=== PATIENT | female | born 1965 | race Caucasian/White ===

== ENCOUNTER 2017-01-09 11:20 | Day surgery (SDC) | payer BC ==
[~2017-01-09] VITALS: Ht 163.8 cm; Wt 98.0 kg
[~2017-01-09 11:20] MED LIST: CEFAZOLIN 1 GRAM INJECTION IV ONE; FOLI1TAB15 PO; LIDOCAINE 1% (10mg/ml) 2ml SDV INJ ONE; LR 1,000 ML IV SCH; OXYC-541 PO
--- OUTSIDE RECORDS SUMMARY | 2017-01-09 11:24 | XMS REPORT | Continuity of Care Document ---
Author Author [facility] Organization [facility] Address Unknown Phone Unavailable Care Team Providers Care Technical Illustrations Map Inker Name Role Phone Ajith Mcintosh Primary Care Physician [phone] Source Comments Some departments are not documenting in the electronic medical record. If you do not see the information that you expected, contact Release of Information in the Health Information Management department at [phone] for further assistance in locating additional records.[facility] Active Allergies and Adverse Reactions No Known Allergies Current Medications Prescription Sig. Disp. Refills Start End Date Status Date OXYCODONE HCL (OXYCODONE Take 2 Tabs by mouth Active PO) every 4 hours. metoprolol XL (TOPROL XL) Take 25 mg by mouth Active 25 mg extended release daily. tablet gabapentin (NEURONTIN) Take 1 Cap by mouth every 60 Cap 0 07/22/20 Active 300 mg capsule 12 hours. Start with 1 at 16 bedtime for 1 week and then increase to 2 a day for 1 week, then increase to 3 a day Active Problems Not on file Most Recent Encounters Date Type Specialty Providers Description 01/02/2017 Telephone Oncology Miles Mejia MD Reports - No call made. Recieved faxed office note dated 12/19/[address] Wells's office. copy kept for review and other sent to be scanned into chart. 12/25/2016 Telephone Oncology Miles Mejia MD Reports - No call made, faxed office note dated 12/16/[address] Hackett's office, sent to be scanned into chart and copy kept to be reviewed by Dr Mejia. 10/25/2016 Telephone Oncology Miles Mejia MD Reports - Office notes for visits dated 09/30,10/08/[address] Hackett's office. Copy kept for Dr Jackie adler and original sent t obe scanned into chart. Social History Tobacco Use Types Packs/Day Years Used Date Former Smoker Cigarettes 1 13 Smokeless Tobacco: Never Used Alcohol Use Drinks/Week oz/Week Comments Yes Last Filed Vital Signs Vital Sign Reading Time Taken Blood Pressure 132/68 07/22/2016 1:06 PM CDT Pulse 84 07/22/2016 1:06 PM CDT Temperature 36.6 C (97.9 F) 07/22/2016 1:06 PM CDT Respiratory Rate 18 07/22/2016 1:06 PM CDT Height 1.676 m (5' 6") 07/22/2016 1:06 PM CDT Weight 101.1 kg (222 lb 14.2 oz) 07/22/2016 1:06 PM CDT Body Mass Index 35.99 07/22/2016 1:06 PM CDT Oxygen Saturation 100% 07/22/2016 1:06 PM CDT Plan of Care Health Maintenance Due Date Last Done Comments Hepatitis C Screening 1965 Physical (Comprehensive) 01/03/1971 Exam Pertussis Vaccine 01/03/1975 Tetanus Vaccine 01/03/1981 Cervical Cancer Screening 01/03/1985 Breast Cancer Screening 2004 Colorectal Cancer 01/03/2014 Screening Influenza Vaccine 06/27/2016 Results from Last 3 Months Not on file
[2017-01-09 12:22] LABS: HCT - HEMATOCRIT 33.1 % (36-46); HGB - HEMOGLOBIN 9.8 GM/DL (12-16); MEAN CORPUSCULAR HGB 33.3 UUG (26-34); MEAN CORPUSCULAR HGB CONC(MCHC 29.6 GM/DL (31-37); MEAN CORPUSCULAR VOLUME 112.6 UM3 (80-100); MEAN PLATELET VOLUME 9.7 UM3 (9.4-12.4); RED BLOOD COUNT 2.94 M/MM3 (4.00-5.20)
[2017-01-09 12:29] LABS: ANION GAP 8 MEQ/L (5-15); BUN/CREATININE RATIO 16 RATIO (6-26); CALCIUM 8.7 MG/DL (8.4-10.2); CHLORIDE 108 MEQ/L (98-107); CO2 - CARBON DIOXIDE 27 MEQ/L (22-30); CREATININE 1.1 MG/DL (0.7-1.2); GLOMERULAR FILTRATION RATE 52; GLUCOSE 98 MG/DL (65-110); POTASSIUM 4.5 MEQ/L (3.6-5); SODIUM 143 MEQ/L (134-144)
[2017-01-09 12:30] LABS: WBC - WHITE BLOOD COUNT 1.2 T/MM3 (4.5-11.0)
[2017-01-09] MEDS ORDERED: SALINE FLUSH 10ml SYRINGE ONE (12:38)
[2017-01-09] MEDS ORDERED: IOHEXOL 300 MG/ML 50ml INJECTION ONE ×2 (12:38→13:50)
--- NOTE | 2017-01-09 12:41 | ANESPREOP ---
Anesthesia Record Date and Time DATE: 01/09/17 TIME: 12:38 Proposed Surgical Procedure T&O #1 Allergies: Coded Allergies: metoclopramide (Verified Adverse Reaction, Unknown, RESTLESSNESS, 01/08/17) promethazine (Verified Adverse Reaction, Unknown, RESTLESSNESS, 01/08/17) Ht/Wt/BMI Height: ' " Weight: kg BMI: kg/m2 Medications Inpatient Medications Current Medications Medications (Trade) Dose Ordered Sig/Samy Start Time Stop Time Status Last Admin Dose Admin Lactated Ringer's (Lactated Ringers) 1,000 ml @ 30 mls/hr Q24H 01/09/17 07:00 Folic Acid (Folic Acid) 1 Mg Tablet, 1 TAB PO DAILY, (Reported) Oxycodone HCl/Acetaminophen (Oxycodone-Acetaminophen 5-325) 5-325 Tablet, 1-2 TAB PO Q4-6H PRN for PAIN, (Reported) Currently on Beta Alva: No Medical/Surgical History Anesthesia PMH: Reports: Cancer (CERVICAL), Denies: *Diabetes, Anesthesia Reactions (NO AIRWAY ISSUES), Arthritis, Blood Transfusion Reac, Clotting Problems, Glaucoma, Malignant Hyperthermia, Renal Disease (HAS STENT), Thyroid Disease Smoking Status: Former smoker (quit 26 yrs ago ) Has pt. smoked today?: No Substance Use Type: does not use Alcohol Intake: none HX of Last Menstrual Period: 2013 Past Surgical History Orthopedic Surgeries: Abdominal Surgeries: Genitourinary Surgeries: Yes - STENTS TO KIDNEY Cardiac Surgeries: Endocrine Surgeries: Reproductive Surgeries: Yes - SLEVE PLACEMENT,MASS REMOVAL Neurological Surgeries: Ear Surgeries: Nose Surgeries: Throat Surgeries: Other Surgeries: Yes - COLONOSCOPY Anesthesia Adverse Reactions: FOUND none Family Hx of Anesthesia Advers: none Hx of Motion Sickness: No Pertinent Findings Laboratory Tests 01/09/17 12:15 EKG Rhythm: Sinus Rhythm Physical Exam Respiratory: Bilat breath sounds equal, Lungs clear Cardiovascular: FOUND Regular rate, rhythm, FOUND No murmur Airway Assessment Mallampati Score: I TMD: 3 Fingerbreadths Neck Extension: Good Overall Assessment: No Airway Concerns ASA: 2 Plan Anesthesia Plan: TIVA, LMA Discussion Discussed risks/options/alternatives of anesthesia and questions answered. Patient consents. Nursing pain assessment noted. Attestation Statement Prior to the delivery of any anesthetic medication, I examined the patient, developed the plan, obtained the patient's consent and discussed the risk and benefits of the procedure with the patient/guardian. STACIE SCHILLING CRNA Jan 09, 2017 12:41
[2017-01-09 12:52] LABS: ANISOCYTOSIS 2+; BAND NEUTROPHILS # 0.1 T/MM3; EOSINOPHILS # (MANUAL) 0.1 T/MM3 (0-0.5); LYMPHOCYTES # (MANUAL) 0.2 T/MM3 (1-4.8); MONOCYTES # (MANUAL) 0.1 T/MM3 (0-0.8); NEUTROPHILS #(MANUAL)-ABSOLUTE 0.6 T/MM3 (1.8-7.7); OVALOCYTES 1+; POIKILOCYTOSIS 2+; TEAR DROP CELLS 1+; TOTAL CELLS COUNTED 50 %
[2017-01-09 13:03] VITALS: Ht 163.8 cm; Wt 98.0 kg
[2017-01-09 13:04] VITALS: BP 118/76; PULSE 79; RESP 14; TEMP 98.6; O2SAT 97
[2017-01-09] MEDS ORDERED: GABA-338 PO (13:09)
[2017-01-09] MEDS ORDERED: ONDA-55 PO (13:10)
[2017-01-09] MEDS ORDERED: PROC10TA PO (13:12)
[2017-01-09] MEDS ORDERED: KETAMINE 500mg/10ml INJECTION ONE (13:33)
[2017-01-09] MEDS ORDERED: FENTANYL 100mcg/2ml INJECTION ONE (13:33)
[2017-01-09] MEDS ORDERED: MIDAZOLAM 2mg/2ml INJECTION ONE (13:33)
[2017-01-09] MEDS ORDERED: PROPOFOL 200mg 20 ML IV ONE (13:34)
[2017-01-09] MEDS ORDERED: LIDOCAINE 2% (20mg/ml) 5ml PF SDV ONE (13:34)
--- NOTE | 2017-01-09 13:40 | NUR ---
SURGERY CANCELLED PROCEDURE CANCELLED DUE TO CRITICAL LOW WHITE BLOOD CELL COUNT OF 1.2
[2017-01-09 13:43] VITALS: BP 118/64; PULSE 71; RESP 12; TEMP 98.6; O2SAT 99
[2017-01-09 14:20] VITALS: BP 127/71; PULSE 82; RESP 20; O2SAT 96
--- NOTE | 2017-01-09 15:07 | GSDISC ---
General Date Date DATE: 01/09/17 TIME: 14:55 Attending Physician Abbey Stinson MD Admitting Physician Abbey Stinson MD Consulting Physician Discharge Diagnosis: (1) Cervical carcinoma Status: Chronic Laboratory Laboratory Laboratory Tests Test 01/09/17 12:15 White Blood Count 1.2T/MM3 Red Blood Count 2.94M/MM3 Hemoglobin 9.8GM/DL Hematocrit 33.1% Mean Corpuscular Volume 112.6UM3 Mean Corpuscular Hemoglobin 33.3UUG Mean Corpuscular Hemoglobin Concent 29.6GM/DL RDW Standard Deviation 74.8FL Platelet Count 173T/MM3 Mean Platelet Volume 9.7UM3 Immature Granulocyte % (Auto) % Neutrophils (%) (Auto) % Lymphocytes (%) (Auto) % Monocytes (%) (Auto) % Eosinophils (%) (Auto) % Basophils (%) (Auto) % Absolute Immature Granulocyte (auto T/MM3 Absolute Neutrophils (auto) T/MM3 Absolute Lymphocytes (auto) T/MM3 Absolute Monocytes (auto) T/MM3 Absolute Eosinophils (auto) T/MM3 Absolute Basophils (auto) T/MM3 Neutrophils % (Manual) 54.0% Band Neutrophils % 10.0% Lymphocytes % (Manual) 18.0% Monocytes % (Manual) 10.0% Eosinophils % (Manual) 8.0% Absolute Neutrophils (Manual) 0.6T/MM3 Band Neutrophils # 0.1T/MM3 Lymphocytes # (Manual) 0.2T/MM3 Monocytes # (Manual) 0.1T/MM3 Eosinophils # (Manual) 0.1T/MM3 Poikilocytosis 2+ Anisocytosis 2+ Macrocytosis 1+ Tear Drop Cells 1+ Ovalocytes 1+ Red Cell Morphology Comment Abnormal Turbidity < 20 Sodium Level 143MEQ/L Potassium Level 4.5MEQ/L Chloride Level 108MEQ/L Carbon Dioxide Level 27MEQ/L Anion Gap 8MEQ/L Blood Urea Nitrogen 18.0MG/DL Creatinine 1.1MG/DL Glomerular Filtration Rate Calc 52 BUN/Creatinine Ratio 16RATIO Glucose Level 98MG/DL Calculated Osmolality 277MOSM/KG Calcium Level 8.7MG/DL Icterus Index < 2 Chemistry Specimen Hemolysis < 15 Hospital Course Patient was prepped in standard fashion in preparation for tandem and ovoids was begun. Procedure had to be aborted, secondary to neutropenia, secondary to chemotherapy. The counts were WLN last week but fell unexpectedly. Dr. Hackett was contacted. Patient is on Levaquin. Will await evaluation of labs next week prior to treatment. Home Meds Reported Medications Prochlorperazine Maleate (Prochlorperazine Maleate) 10 Mg Tablet, 1 TAB PO Q6H for NAUSEA &/OR VOMITING, #60 TAB 3 Refills 01/09/17 Ondansetron HCl (Ondansetron HCl) 4 Mg Tablet, 4 MG PO Q4-6H for NAUSEA &/OR VOMITING, TAB 01/09/17 Gabapentin (Gabapentin) 300 Mg Capsule, 1-2 CAP PO TID, CAP 01/09/17 Folic Acid (Folic Acid) 1 Mg Tablet, 1 TAB PO DAILY, #30 01/08/17 Oxycodone HCl/Acetaminophen (Oxycodone-Acetaminophen 5-325) 5-325 Tablet, 1-2 TAB PO Q4-6H Y for PAIN, #120 01/08/17 Discharge Disposition Discharged in good condition. ABBEY STINSON MD Jan 09, 2017 15:06
== END 2017-01-09 14:25 | disposition home or self-care (01) ==
LOC: SCU 11:20
PROVIDERS: ATTEND Radiology Radiation Oncology
DX: C79.82 Secondary malignant neoplasm of genital organs (principal); D70.1 Agranulocytosis secondary to cancer chemotherapy; Z53.09 Procedure and treatment not carried out because of other contraindication; Z15.09 Genetic susceptibility to other malignant neoplasm; E66.9 Obesity, unspecified; Z68.36 Body mass index [BMI] 36.0-36.9, adult; E03.9 Hypothyroidism, unspecified; F32.9 Major depressive disorder, single episode, unspecified; Z79.899 Other long term (current) drug therapy; Z87.891 Personal history of nicotine dependence
CPT/HCPCS: 36415; 57155; 80048; 85025; J1642; J2250; J2704; J3010; J7120; Q9967

== ENCOUNTER 2017-01-16 09:23 | Day surgery (SDC) | payer BC ==
[2017-01-16] VITALS (7 sets, daily range): BP systolic 103–115; BP diastolic 63–76; PULSE 63–89; RESP 12–18; TEMP 97.6–98.5; O2SAT 91–98; Ht 163.8 cm; Wt 97.7 kg
[~2017-01-16] VITALS: Ht 163.8 cm; Wt 97.7 kg
[~2017-01-16 09:23] MED LIST changes: +GABA-338 PO; +IOHEXOL 300 MG/ML 50ml INJECTION ONE; +ONDA-55 PO; +PROC10TA PO; +SALINE FLUSH 10ml SYRINGE ONE
--- OUTSIDE RECORDS SUMMARY | 2017-01-16 09:26 | XMS REPORT | Continuity of Care Document ---
Author Author [facility] Organization [facility] Address Unknown Phone Unavailable Care Team Providers Care Cardiac Technologist Name Role Phone Ajith Mcintosh Primary Care Physician [phone] Source Comments Some departments are not documenting in the electronic medical record. If you do not see the information that you expected, contact Release of Information in the Health Information Management department at [phone] for further assistance in locating additional records.[facility] Active Allergies and Adverse Reactions No Known [...] Recent Encounters Date Type Specialty Providers Description 01/15/2017 Telephone Oncology Miles Mejia MD Reports - no call made. Records reicieved from office visit dated 12/16/[address] Hackett. Sent to be scanned into chart after reviewed by Dr. Mejia 01/02/2017 Telephone Oncology Miles Mejia MD Reports [...]
--- OUTSIDE RECORDS SUMMARY | 2017-01-16 09:26 | XMS REPORT | Continuity of Care Document ---
Author Author [facility] Organization [facility] Address Unknown Phone Unavailable Support Name Relationship Address Phone CHEKO AMIN MD Caregiver [address] [place] [address] Unavailable NAPOLEON PILLAI MD Caregiver [address] [place] [address] Unavailable ALYX LYNNE Next Of Kin [address] [place] [address] Insurance Providers Guarantor Lizz Lynne Address [address] [place] [address] Email [email or web address] [facility]ayer [facility] Policy Number [id number] Subscriber's Name Alyx Lynne Relationship 01 Spouse Group Number [id number] Advance Directives Directive Response Recorded Date/Time Dr Ordered Resuscitation Status Full Code 01/08/17 3:14pm Resuscitation Documents on File No 01/09/17 1:21pm DPOA for Healthcare Only No 01/09/17 1:21pm Living Will No 01/09/17 1:21pm Problems No problem information available. Medications Current Home Medications Medication Dose Units Route Directions Days Qty Instructions Start Date Folic Acid 1 Mg Tablet 1 Tab Oral Daily 30 01/08/17 Gabapentin 300 Mg Capsule 1-2 Cap Oral Three Times A Day 01/09/17 Ondansetron Hcl 4 Mg Tablet 4 Mg Oral Every 4-6 Hours for Nausea &/Or Vomiting 01/09/17 Oxycodone Hcl/Acetaminophen (Oxycodone-Acetaminophen 5-325) 5-325 Tablet 1-2 Tab Oral Every 4-6 Hours as needed for Pain 120 01/08/17 Prochlorperazine Maleate 10 Mg Tablet 1 Tab Oral Every 6 Hours for Nausea & /Or Vomiting 60 Tablet 01/09/17 Social History Social History Problem Response Recorded Date/Time Onset Date Status Chewing Tobacco Status No 01/09/2017 1:12pm Not Applicable Not Applicable Hx Substance Use No 01/09/2017 1:12pm Not Applicable Not Applicable Hx Alcohol Use Y OCC 01/09/2017 1:12pm Not Applicable Not Applicable Has the pt used tobacco in the last 12 months No 01/09/2017 1:12pm Not Applicable Not Applicable Query Response Start Date Stop Date Smoking Status Former smoker Hospital Discharge Instructions No hospital discharge instructions. Plan of Care Discharge Date 01/09/17 2:25pm Prescriptions See Medication Section Functional Status Query Response Date Recorded Ability to complete ADL's impeded by No change January 09, 2017 1:21pm Allergies, Adverse Reactions, Alerts Allergen Type Severity Reaction Status Last Updated Promethazine Adverse Reaction Unknown RESTLESSNESS Active 01/09/17 Metoclopramide Adverse Reaction Unknown RESTLESSNESS Active 01/09/17 Immunizations Query Response on File Recorded Date/Time Hx Influenza Vaccination No 01/09/17 1:12pm Hx Pneumococcal Vaccination No 01/09/17 1:12pm Hx Influenza Vaccination No 01/09/17 1:12pm Vital Signs Acute Vital Signs Vital Response Date/Time Temperature (Fahrenheit) 98.6 deg F (96.8 - 99.1) 01/09/2017 1:43pm Temperature (Calculated Celsius) 37.38941 degrees C (36.0 - 37.3) 01/09/2017 1:43pm Temperature Source Oral 01/09/2017 1:43pm Pulse Rate (adult) 82 bpm (60 - 100) 01/09/2017 2:20pm Respiratory Rate 20 breaths/min (10 - 20) 01/09/2017 2:20pm O2 Sat by Pulse Oximetry 96 % (90 - 100) 01/09/2017 2:20pm Oxygen Delivery Method Room Air 01/09/2017 2:20pm Blood Pressure 127/71 mm Hg 01/09/2017 2:20pm Blood Pressure Source Automatic Cuff 01/09/2017 2:20pm Height (Feet) 5 feet 01/09/2017 1:03pm Height (Inches) 4.50 inches 01/09/2017 1:03pm Weight (Kilograms) 98.000 kg 01/09/2017 1:03pm Body Mass Index (BMI) 36.5 01/09/2017 1:03pm Results Laboratory Results Test Name Result Units Flags Reference Collection Date/Time Result Date/ Time Comments White Blood Count 1.2 T/MM3 *L 4.5-11.0 01/09/2017 12:15pm 01/09/2017 12: 30pm Red Blood Count 2.94 M/MM3 L 4.00-5.20 01/09/2017 12:15pm 01/09/2017 12: 28pm Hemoglobin 9.8 GM/DL L 12-16 01/09/2017 12:15pm 01/09/2017 12:28pm Hematocrit 33.1 % L 36-46 01/09/2017 12:15pm 01/09/2017 12:28pm Mean Corpuscular Volume 112.6 UM3 H 80-100 01/09/2017 12:15pm 2016 12:28pm Mean Corpuscular Hemoglobin 33.3 UUG 26-34 01/09/2017 12:15pm 2016 12:28pm Mean Corpuscular Hemoglobin Concent 29.6 GM/DL L 31-37 01/09/2017 12: 15pm 01/09/2017 12:28pm RDW Standard Deviation 74.8 FL H 36.9-50.2 01/09/2017 12:15pm 2016 12:28pm Platelet Count 173 T/MM3 130-400 01/09/2017 12:15pm 01/09/2017 12:28pm Mean Platelet Volume 9.7 UM3 9.4-12.4 01/09/2017 12:15pm 01/09/2017 12: 28pm Neutrophils % (Manual) 54.0 % 33-66 01/09/2017 12:15pm 01/09/2017 12: 52pm Band Neutrophils % 10.0 % H 0-6 01/09/2017 12:15pm 01/09/2017 12:52pm Lymphocytes % (Manual) 18.0 % L 23-45 01/09/2017 12:15pm 01/09/2017 12: 52pm Monocytes % (Manual) 10.0 % H 0-9.0 01/09/2017 12:15pm 01/09/2017 12: 52pm Eosinophils % (Manual) 8.0 % H 0-4 01/09/2017 12:15pm 01/09/2017 12: 52pm Band Neutrophils # 0.1 T/MM3 01/09/2017 12:15pm 01/09/2017 12:52pm Absolute Neutrophils (Manual) 0.6 T/MM3 L 1.8-7.7 01/09/2017 12:15pm 12:52pm Lymphocytes # (Manual) 0.2 T/MM3 L 1-4.8 01/09/2017 12:15pm 01/09/2017 12:52pm Monocytes # (Manual) 0.1 T/MM3 0-0.8 01/09/2017 12:15pm 01/09/2017 12: 52pm Eosinophils # (Manual) 0.1 T/MM3 0-0.5 01/09/2017 12:15pm 01/09/2017 12 :52pm Red Cell Morphology Comment ABNORMAL 01/09/2017 12:15pm 01/09/2017 12:52pm Anisocytosis 2+ 01/09/2017 12:15pm 01/09/2017 12:52pm Poikilocytosis 2+ 01/09/2017 12:15pm 01/09/2017 12:52pm Macrocytosis 1+ 01/09/2017 12:15pm 01/09/2017 12:52pm Ovalocytes 1+ 01/09/2017 12:15pm 01/09/2017 12:52pm Tear Drop Cells 1+ 01/09/2017 12:15pm 01/09/2017 12:52pm Icterus Index < 2 0-7 01/09/2017 12:15pm 01/09/2017 12:29pm Chemistry Specimen Hemolysis < 15 0-25 01/09/2017 12:15pm 01/09/2017 12:29pm 0-25: Specimen Exhibited No Hemolysis. Turbidity < 20 0-20 01/09/2017 12:15pm 01/09/2017 12:29pm Sodium Level 143 MEQ/L 134-144 01/09/2017 12:15pm 01/09/2017 12:29pm Potassium Level 4.5 MEQ/L 3.6-5 01/09/2017 12:15pm 01/09/2017 12:29pm Chloride Level 108 MEQ/L H 98-107 01/09/2017 12:15pm 01/09/2017 12:29pm Carbon Dioxide Level 27 MEQ/L 22-30 01/09/2017 12:15pm 01/09/2017 12: 29pm Anion Gap 8 MEQ/L 5-15 01/09/2017 12:15pm 01/09/2017 12:29pm Blood Urea Nitrogen 18.0 MG/DL H 7-17 01/09/2017 12:15pm 01/09/2017 12: 29pm Creatinine 1.1 MG/DL 0.7-1.2 01/09/2017 12:15pm 01/09/2017 12:29pm BUN/Creatinine Ratio 16 RATIO 6-26 01/09/2017 12:15pm 01/09/2017 12: 29pm Glomerular Filtration Rate Calc 52 01/09/2017 12:15pm 01/09/2017 12 :29pm Glucose Level 98 MG/DL 65-110 01/09/2017 12:15pm 01/09/2017 12:29pm Calculated Osmolality 277 MOSM/KG 261-280 01/09/2017 12:15pm 2016 12:29pm Calcium Level 8.7 MG/DL 8.4-10.2 01/09/2017 12:15pm 01/09/2017 12:29pm Procedures Procedure Status Date Provider(s) Brachytherapy Completed 01/09/17 NAPOLEON PILLAI MD Encounters Encounter Location Arrival/Admit Date Discharge/Depart Date Attending Provider Departed Surgical Day Care [facility] 01/09/17 11:20am 01/09/17 2 :25pm NAPOLEON PILLAI MD
[2017-01-16 09:58] LABS: HCT - HEMATOCRIT 34.2 % (36-46); HGB - HEMOGLOBIN 10.6 GM/DL (12-16); MEAN CORPUSCULAR HGB 34.2 UUG (26-34); MEAN CORPUSCULAR VOLUME 110.3 UM3 (80-100); MEAN PLATELET VOLUME 10.6 UM3 (9.4-12.4); WBC - WHITE BLOOD COUNT 9.8 T/MM3 (4.5-11.0)
--- NOTE | 2017-01-16 10:00 | ANESPREOP ---
Anesthesia Record Date and Time DATE: 01/16/17 TIME: 09:58 Pre-Op Diagnosis cervical cancer Proposed Surgical Procedure TANDEM AND OVOID INSERTION 1 NPO since: mn Allergies: Coded Allergies: metoclopramide (Verified Adverse Reaction, Unknown, RESTLESSNESS, 01/09/17) promethazine (Verified Adverse Reaction, Unknown, RESTLESSNESS, 01/09/17) Ht/Wt/BMI Height: 5 ' 4.50 " Weight: 97.700 kg BMI: 36.4 kg/m2 Vital Signs Date Time Temp Pulse Resp B/P Pulse Ox O2 Delivery O2 Flow Rate FiO2 01/16/17 09:39 98.5 80 15 115/76 98 Room Air Medications Inpatient Medications Current Medications Medications (Trade) Dose Ordered Sig/Samy Start Time Stop Time Status Last Admin Dose Admin Lactated Ringer's (Lactated Ringers) 1,000 ml @ 30 mls/hr Q24H 01/16/17 07:00 Folic Acid (Folic Acid) 1 Mg Tablet, 1 TAB PO DAILY, (Reported) Gabapentin (Gabapentin) 300 Mg Capsule, 1-2 CAP PO TID, (Reported) Ondansetron HCl (Ondansetron HCl) 4 Mg Tablet, 8 MG PO Q8H, (Reported) Oxycodone HCl/Acetaminophen (Oxycodone-Acetaminophen 5-325) 5-325 Tablet, 1-2 TAB PO Q4-6H PRN for PAIN, (Reported) Prochlorperazine Maleate (Prochlorperazine Maleate) 10 Mg Tablet, 1 TAB PO Q6H, (Reported) Currently on Beta Alva: No Medical/Surgical History Anesthesia PMH: Reports: Arthritis (PER H&P), Cancer (CERVICAL), Obesity, Renal Disease (ureteral obstruction, stent placed), Thyroid Disease ( HYPOTHYROIDISM PER H&P) Smoking Status: Former smoker (quit 26 years ago) # of Packs per Day: 1 # of Years: 13 Use Chewing Tobacco?: No Second Hand Exposure: No Substance Use Type: does not use Alcohol Intake: none HX of Last Menstrual Period: LMP 2013 Past Surgical History Orthopedic Surgeries: Abdominal Surgeries: Genitourinary Surgeries: Yes - STENTS TO L. KIDNEY Cardiac Surgeries: Endocrine Surgeries: Reproductive Surgeries: Yes - SLEEVE PLACEMENT,MASS REMOVAL,SALPINGO OOPHORECTOMY Neurological Surgeries: Ear Surgeries: Nose Surgeries: Throat Surgeries: Other Surgeries: Yes - COLONOSCOPY & EGD Anesthesia Adverse Reactions: FOUND none Hx of Motion Sickness: No Pertinent Findings EKG Rhythm: Sinus Rhythm Physical Exam Respiratory: Bilat breath sounds equal, Lungs clear Cardiovascular: FOUND Regular rate, rhythm Airway Assessment Mallampati Score: II TMD: 3 Fingerbreadths Neck Extension: Good Overall Assessment: No Airway Concerns ASA: 2 Plan Anesthesia Plan: TIVA, LMA, GETA Discussion Discussed risks/options/alternatives of anesthesia and questions answered. Patient consents. Nursing pain assessment noted. Attestation Statement Prior to the delivery of any anesthetic medication, I examined the patient, developed the plan, obtained the patient's consent and discussed the risk and benefits of the procedure with the patient/guardian. STACIE ADAME CRNA Jan 16, 2017 10:00
[2017-01-16] MEDS ORDERED: PROPOFOL 500mg 50 ML IV ONE (10:07)
[2017-01-16] MEDS ORDERED: FENTANYL 100mcg/2ml INJECTION ONE (10:07)
[2017-01-16 10:13] LABS: ANION GAP 9 MEQ/L (5-15); BUN/CREATININE RATIO 16 RATIO (6-26); CHLORIDE 106 MEQ/L (98-107); CO2 - CARBON DIOXIDE 27 MEQ/L (22-30); GLOMERULAR FILTRATION RATE 58; GLUCOSE 106 MG/DL (65-110); POTASSIUM 4.2 MEQ/L (3.6-5); SODIUM 142 MEQ/L (134-144)
[2017-01-16 10:16] LABS: ANISOCYTOSIS 2+; BAND NEUTROPHILS # 1.8 T/MM3; BASOPHILS # (MANUAL) 0.1 T/MM3 (0-0.2); LYMPHOCYTES # (MANUAL) 0.4 T/MM3 (1-4.8); METAMYELOCYTES # 0.7 T/MM3; MONOCYTES # (MANUAL) 1.3 T/MM3 (0-0.8); MYELOCYTES # 0.3 T/MM3; NEUTROPHILS #(MANUAL)-ABSOLUTE 5.3 T/MM3 (1.8-7.7); NUCLEATED RED BLOOD CELLS 4; POIKILOCYTOSIS 2+; TOTAL CELLS COUNTED 100 %
[2017-01-16 10:17] LABS: OVALOCYTES 1+; TEAR DROP CELLS 1+
[2017-01-16] MEDS ORDERED: DEXAMETHASONE 4mg/ml - 1ml INJECTION ONE (10:57)
[2017-01-16] MEDS ORDERED: IOHEXOL 300 MG/ML 50ml INJECTION ONE (11:15)
[2017-01-16] MEDS: HYDROMORPHONE 2mg/ml INJECTION IV PRN ×3 (11:32→11:59)
--- NOTE | 2017-01-16 12:01 | ANESPO ---
Post-Op Note Date 01/16/17 Time: 12:00 Status Pt Participated in Evaluation: Pt participated in person Vital Signs Date Time Temp Pulse Resp B/P Pulse Ox O2 Delivery O2 Flow Rate FiO2 01/16/17 11:44 12 01/16/17 11:37 78 110/68 93 Room Air 01/16/17 11:22 97.6 6.00 Respiratory Function: Airway patent, Regular respirations Cardiovascular Function: Regular pulse Mental Status: Alert/oriented Pain Level Intensity: 6 (pt states more pressure than pain) Hydration: IV infusing Complications during Recovery None apparent Follow-Up Instructions Instructions Per Surgeon ZITA KELLY SNACK BAR COOK STUDENT Jan 16, 2017 12:01
--- NOTE | 2017-01-16 12:15 | NUR ---
TRANSFER PATIENT ALERT AND ORIENTED WITHOUT C/O. TRANSFERRED TO IMAGING DEPARTMENT VIA CART FOR CT. MEHTA PATENT, EMPTIED 175 ML IN PACU. PAC FLUSHED WITH 10 ML NS, REMAINS ACCESSED. RN TO REMAIN WITH PATIENT DURING CT.
--- NOTE | 2017-01-16 12:31 | NUR ---
TRANSFER PATIENT REMAINS ALERT AND ORIENTED. NO C/O VOICED. TRANSFER OF CARE TO [facility]. REPORT GIVEN TO FRANCHESKA, RADIATION THERAPIST. PATIENT TRANSFERRED TO [facility] VIA CART ACCOMPANIED BY FRANCHESKA AND [facility] STAFF MEMBER. PATIENT SPOUSE PRESENT AT TIME OF TRANSFER.
--- NOTE | 2017-01-16 12:55 | DI ---
Indication: ITS.REASON: Verify applicator placement and R/O postop complication PROCEDURE: CT PELVIS W/O CONTRAST: Encounter: Initial Comparison: None Technique: Axial noncontrast CT imaging through the pelvis with coronal and sagittal two-dimensional reformats. Automated Exposure Control and Iterative Reconstruction dose reducing techniques were utilized. Findings: Exam is performed for radiation therapy treatment planning purposes. There is a tandem and ovoid device in appropriate position. No evidence of uterine perforation. Velarde catheter within a contrast-filled bladder. No evidence of extravasation. Rectal contrast was also administered. No evidence of colonic perforation. Visualized small and large bowel loops within the pelvis are grossly normal. Bone windows are unremarkable. Left-sided ureteral stent in place. Surgical clips along the left pelvic sidewall. Impression: Radiation therapy treatment device in place without evidence of immediate complication. .
--- NOTE | 2017-01-16 18:25 | GSDISC ---
General Date Date DATE: 01/16/17 TIME: 18:20 Attending Physician Abbey Stinson MD Admitting Physician Abbey Stinson MD Consulting Physician Discharge Diagnosis: (1) Cervical carcinoma Status: Chronic Procedures Tandem and ovoid insertion with exam under anesthesia. Laboratory Laboratory Laboratory Tests Test 01/16/17 09:52 White Blood Count 9.8T/MM3 Red Blood Count 3.10M/MM3 Hemoglobin 10.6GM/DL Hematocrit 34.2% Mean Corpuscular Volume 110.3UM3 Mean Corpuscular Hemoglobin 34.2UUG Mean Corpuscular Hemoglobin Concent 31.0GM/DL RDW Standard Deviation 72.1FL Platelet Count 195T/MM3 Mean Platelet Volume 10.6UM3 Immature Granulocyte % (Auto) % Neutrophils (%) (Auto) % Lymphocytes (%) (Auto) % Monocytes (%) (Auto) % Eosinophils (%) (Auto) % Basophils (%) (Auto) % Absolute Immature Granulocyte (auto T/MM3 Absolute Neutrophils (auto) T/MM3 Absolute Lymphocytes (auto) T/MM3 Absolute Monocytes (auto) T/MM3 Absolute Eosinophils (auto) T/MM3 Absolute Basophils (auto) T/MM3 Neutrophils % (Manual) 54.0% Band Neutrophils % 18.0% Lymphocytes % (Manual) 4.0% Monocytes % (Manual) 13.0% Basophils % (Manual) 1.0% Metamyelocytes % 7.0% Myelocytes % 3.0% Absolute Neutrophils (Manual) 5.3T/MM3 Band Neutrophils # 1.8T/MM3 Lymphocytes # (Manual) 0.4T/MM3 Monocytes # (Manual) 1.3T/MM3 Basophils # (Manual) 0.1T/MM3 Metamyelocytes # 0.7T/MM3 Myelocytes # 0.3T/MM3 Nucleated Red Blood Cells 4 Poikilocytosis 2+ Anisocytosis 2+ Macrocytosis 1+ Tear Drop Cells 1+ Ovalocytes 1+ Red Cell Morphology Comment Abnormal Turbidity < 20 Sodium Level 142MEQ/L Potassium Level 4.2MEQ/L Chloride Level 106MEQ/L Carbon Dioxide Level 27MEQ/L Anion Gap 9MEQ/L Blood Urea Nitrogen 16.0MG/DL Creatinine 1.0MG/DL Glomerular Filtration Rate Calc 58 BUN/Creatinine Ratio 16RATIO Glucose Level 106MG/DL Calculated Osmolality 274MOSM/KG Calcium Level 9.0MG/DL Icterus Index < 2 Chemistry Specimen Hemolysis < 15 Hospital Course Patients labs were reviewed and are adequate to proceed. Patient prepped and draped in standard fashion. Velarde placed with Hypaque in balloon. Exam under anesthesia showed no lesions. There is redundancy of tissue with both cysto and rectocele. 15 degree tandem was placed without difficulty into 8cm cervical sleeve. Small ovoids placed without complication. Separate bladder and rectal packing placed. Rectal tube placed for CT contrast to be used in treatment planning. Patient was in good condition on dismissal to recovery. Home Meds Reported Medications Prochlorperazine Maleate (Prochlorperazine Maleate) 10 Mg Tablet, 1 TAB PO Q6H for NAUSEA &/OR VOMITING, #60 TAB 3 Refills 01/09/17 Ondansetron HCl (Ondansetron HCl) 4 Mg Tablet, 8 MG PO Q8H, TAB 01/09/17 Gabapentin (Gabapentin) 300 Mg Capsule, 1-2 CAP PO TID, CAP 01/09/17 Folic Acid (Folic Acid) 1 Mg Tablet, 1 TAB PO DAILY, #30 01/08/17 Oxycodone HCl/Acetaminophen (Oxycodone-Acetaminophen 5-325) 5-325 Tablet, 1-2 TAB PO Q4-6H Y for PAIN, #120 01/08/17 Discharge Disposition Dismissed in good condition to recovery. ABBEY STINSON MD Jan 16, 2017 18:24
== END 2017-01-16 12:31 | disposition other institution (70) ==
LOC: SCU 09:23
PROVIDERS: ATTEND Radiology Radiation Oncology
DX: C79.82 Secondary malignant neoplasm of genital organs (principal); N81.6 Rectocele; Z15.09 Genetic susceptibility to other malignant neoplasm; F32.9 Major depressive disorder, single episode, unspecified; E03.9 Hypothyroidism, unspecified; E66.9 Obesity, unspecified; Z68.36 Body mass index [BMI] 36.0-36.9, adult; Z79.899 Other long term (current) drug therapy; Z87.891 Personal history of nicotine dependence
CPT/HCPCS: 57155; 72192; 80048; 85025; J0690; J1100; J1170; J2704; J3010; J7120; Q9967

== ENCOUNTER 2017-01-30 08:31 | Day surgery (SDC) | payer BC ==
[~2017-01-30] VITALS: Ht 165.1 cm; Wt 95.6 kg
[~2017-01-30 08:31] MED LIST changes: -SALINE FLUSH 10ml SYRINGE ONE
--- OUTSIDE RECORDS SUMMARY | 2017-01-30 08:34 | XMS REPORT | Continuity of Care Document ---
Author Author [facility] Organization [facility] Address Unknown Phone Unavailable Care Team Providers Care Sales Applications Engineer Name Role Phone Ajith Mcintosh Primary Care Physician [phone] Source Comments Some departments are not documenting in the electronic medical record. If you do not see the information that you expected, contact Release of Information in the Health Information Management department at [phone] for further assistance in locating additional records.[facility] Active Allergies and Adverse Reactions [...] Recent Encounters Date Type Specialty Providers Description 01/29/2017 Telephone Oncology Miles Mejia MD Reports - No call made. fax recieved of office visit dated 01/20/[address] Hackett, copy made for doctor to review and orginal sent to be scanned into chart. 01/15/2017 Telephone Oncology Miles Mejia MD Reports [...] kept to be reviewed by Dr Mejia. Social History Tobacco Use Types Packs/Day Years [...] 2004 Colorectal Cancer 01/03/2014 Screening Influenza Vaccine 06/27/2017 Results from Last 3 Months Not on file
--- OUTSIDE RECORDS SUMMARY | 2017-01-30 08:34 | XMS REPORT | Continuity of Care Document ---
Author Author [facility] Organization [facility] Address Unknown Phone Unavailable Support Name Relationship Address Phone CHEKO AMIN MD Caregiver [address] [place] [address] Unavailable NAPOLEON PILLAI MD Caregiver [address] [place] [address] Unavailable ALYX DURBIN Next Of Kin [address] [place] [address] Insurance Providers Guarantor Lizz Durbin Address [address] [place] [address] Email [email or web address] Payer [facility] Policy Number [id number] Subscriber's Name Alyx Durbin Relationship 01 Spouse Group Number [id number] Advance Directives Directive Response Recorded Date/Time Dr Ordered Resuscitation Status Full Code 01/15/17 2:14pm Resuscitation Documents on File No 01/16/17 10:17am DPOA for Healthcare Only No 01/16/17 10:17am Living Will No 01/16/17 10:17am Problems Active Problems Medical Problem Onset Date Status Cervical carcinoma Unknown Chronic Medications Current Home Medications Medication Dose Units Route Directions Days Qty Instructions Start Date Folic Acid 1 Mg Tablet 1 Tab Oral Daily 30 01/08/17 Gabapentin 300 Mg Capsule 1-2 Cap Oral Three Times A Day 01/09/17 Ondansetron Hcl 4 Mg Tablet 8 Mg Oral Every 8 Hours 01/09/17 Oxycodone Hcl/Acetaminophen (Oxycodone-Acetaminophen 5-325) 5-325 Tablet 1-2 Tab Oral Every 4-6 Hours as needed for Pain 120 01/08/17 Prochlorperazine Maleate 10 Mg Tablet 1 Tab Oral Every 6 Hours for Nausea & /Or Vomiting 60 Tablet 01/09/17 Social History Social History Problem Response Recorded Date/Time Onset Date Status Chewing Tobacco Status No 01/16/2017 10:19am Not Applicable Not Applicable Hx Substance Use No 01/16/2017 10:19am Not Applicable Not Applicable Hx Alcohol Use Y OCC 01/16/2017 10:19am Not Applicable Not Applicable Has the pt used tobacco in the last 12 months No 01/16/2017 10:19am Not Applicable Not Applicable Query Response Start Date Stop Date Smoking Status Former smoker Hospital Discharge Instructions No hospital discharge instructions. Plan of Care Discharge Date 01/16/17 12:31pm Prescriptions See Medication Section Functional Status Query Response Date Recorded Ability to complete ADL's impeded by No change January 16, 2017 10:17am Allergies, Adverse Reactions, Alerts Allergen Type Severity Reaction Status Last Updated Promethazine Adverse Reaction Unknown RESTLESSNESS Active 01/16/17 Metoclopramide Adverse Reaction Unknown RESTLESSNESS Active 01/16/17 Immunizations Query Response on File Recorded Date/Time Hx Influenza Vaccination No 01/16/17 10:19am Hx Pneumococcal Vaccination No 01/16/17 10:19am Hx Influenza Vaccination No 01/16/17 10:19am Vital Signs Acute Vital Signs Vital Response Date/Time Temperature (Fahrenheit) 97.6 deg F (96.8 - 99.1) 01/16/2017 12:06pm Temperature (Calculated Celsius) 36.93460 degrees C (36.0 - 37.3) 01/16/2017 12:06pm Temperature Source Temporal 01/16/2017 12:06pm Pulse Rate (adult) 64 bpm (60 - 100) 01/16/2017 12:10pm Respiratory Rate 14 breaths/min (10 - 20) 01/16/2017 12:10pm O2 Sat by Pulse Oximetry 92 % (90 - 100) 01/16/2017 12:10pm Oxygen Delivery Method Room Air 01/16/2017 12:10pm Oxygen Flow Rate 6.00 L/min 01/16/2017 11:22am Blood Pressure 111/71 mm Hg 01/16/2017 12:10pm Blood Pressure Source Automatic Cuff 01/16/2017 12:10pm Height (Feet) 5 feet 01/16/2017 9:38am Height (Inches) 4.50 inches 01/16/2017 9:38am Weight (Kilograms) 97.700 kg 01/16/2017 9:38am Body Mass Index (BMI) 36.4 01/16/2017 9:38am Results Laboratory Results Test Name Result Units Flags Reference Collection Date/Time Result Date/ Time Comments Eosinophils % (Manual) 8.0 % H 0-4 01/09/2017 12:15pm 01/09/2017 12: 52pm Eosinophils # (Manual) 0.1 T/MM3 0-0.5 01/09/2017 12:15pm 01/09/2017 12 :52pm White Blood Count 9.8 T/MM3 4.5-11.0 01/16/2017 9:52am 01/16/2017 10: 03am Red Blood Count 3.10 M/MM3 L 4.00-5.20 01/16/2017 9:52am 01/16/2017 10: 03am Hemoglobin 10.6 GM/DL L 12-16 01/16/2017 9:52am 01/16/2017 10:03am Hematocrit 34.2 % L 36-46 01/16/2017 9:52am 01/16/2017 10:03am Mean Corpuscular Volume 110.3 UM3 H 80-100 01/16/2017 9:52am 01/16/2017 10:03am Mean Corpuscular Hemoglobin 34.2 UUG H 26-34 01/16/2017 9:52am 2016 10:03am Mean Corpuscular Hemoglobin Concent 31.0 GM/DL 31-37 01/16/2017 9:52am 01/16/2017 10:03am RDW Standard Deviation 72.1 FL H 36.9-50.2 01/16/2017 9:52am 01/16/2017 10:03am Platelet Count 195 T/MM3 130-400 01/16/2017 9:52am 01/16/2017 10:03am Mean Platelet Volume 10.6 UM3 9.4-12.4 01/16/2017 9:52am 01/16/2017 10: 03am Neutrophils % (Manual) 54.0 % 33-66 01/16/2017 9:52am 01/16/2017 10: 17am Band Neutrophils % 18.0 % H 0-6 01/16/2017 9:52am 01/16/2017 10:17am Lymphocytes % (Manual) 4.0 % L 23-45 01/16/2017 9:52am 01/16/2017 10: 17am Monocytes % (Manual) 13.0 % H 0-9.0 01/16/2017 9:52am 01/16/2017 10: 17am Basophils % (Manual) 1.0 % 0-2 01/16/2017 9:52am 01/16/2017 10:17am Metamyelocytes % 7.0 % H 0-0 01/16/2017 9:52am 01/16/2017 10:17am Myelocytes % 3.0 % H 0-0 01/16/2017 9:52am 01/16/2017 10:17am Band Neutrophils # 1.8 T/MM3 01/16/2017 9:52am 01/16/2017 10:17am Absolute Neutrophils (Manual) 5.3 T/MM3 1.8-7.7 01/16/2017 9:52am 01/16 10:17am Lymphocytes # (Manual) 0.4 T/MM3 L 1-4.8 01/16/2017 9:52am 01/16/2017 10 :17am Monocytes # (Manual) 1.3 T/MM3 H 0-0.8 01/16/2017 9:52am 01/16/2017 10: 17am Basophils # (Manual) 0.1 T/MM3 0-0.2 01/16/2017 9:52am 01/16/2017 10: 17am Metamyelocytes # 0.7 T/MM3 01/16/2017 9:52am 01/16/2017 10:17am Myelocytes # 0.3 T/MM3 01/16/2017 9:52am 01/16/2017 10:17am Nucleated Red Blood Cells 4 01/16/2017 9:52am 01/16/2017 10:17am Red Cell Morphology Comment ABNORMAL 01/16/2017 9:52am 01/16/2017 10:17am Anisocytosis 2+ 01/16/2017 9:52am 01/16/2017 10:17am Poikilocytosis 2+ 01/16/2017 9:52am 01/16/2017 10:17am Macrocytosis 1+ 01/16/2017 9:52am 01/16/2017 10:17am Ovalocytes 1+ 01/16/2017 9:52am 01/16/2017 10:17am Tear Drop Cells 1+ 01/16/2017 9:52am 01/16/2017 10:17am Icterus Index < 2 0-7 01/16/2017 9:52am 01/16/2017 10:13am Chemistry Specimen Hemolysis < 15 0-25 01/16/2017 9:52am 01/16/2017 10:13am 0-25: Specimen Exhibited No Hemolysis. Turbidity < 20 0-20 01/16/2017 9:52am 01/16/2017 10:13am Sodium Level 142 MEQ/L 134-144 01/16/2017 9:52am 01/16/2017 10:13am Potassium Level 4.2 MEQ/L 3.6-5 01/16/2017 9:52am 01/16/2017 10:13am Chloride Level 106 MEQ/L 98-107 01/16/2017 9:52am 01/16/2017 10:13am Carbon Dioxide Level 27 MEQ/L 22-30 01/16/2017 9:52am 01/16/2017 10: 13am Anion Gap 9 MEQ/L 5-15 01/16/2017 9:52am 01/16/2017 10:13am Blood Urea Nitrogen 16.0 MG/DL 7-17 01/16/2017 9:52am 01/16/2017 10: 13am Creatinine 1.0 MG/DL 0.7-1.2 01/16/2017 9:52am 01/16/2017 10:13am BUN/Creatinine Ratio 16 RATIO 6-26 01/16/2017 9:52am 01/16/2017 10: 13am Glomerular Filtration Rate Calc 58 01/16/2017 9:52am 01/16/2017 10: 13am Glucose Level 106 MG/DL 65-110 01/16/2017 9:52am 01/16/2017 10:13am Calculated Osmolality 274 MOSM/KG 261-280 01/16/2017 9:52am 01/16/2017 10:13am Calcium Level 9.0 MG/DL 8.4-10.2 01/16/2017 9:52am 01/16/2017 10:13am Name: LIZZ DURBIN Unit #: [id number] : [id number] Sex: F Admit Date: Loc / Svc: SCU Discharge Date: DIAGNOSTIC IMAGING REPORT Report #: [id number] [facility] IMELDA Flores Indication: ITS.REASON: Verify applicator placement and R/O postop complication PROCEDURE: CT PELVIS W/O CONTRAST: Encounter: Initial Comparison: None Technique: Axial noncontrast CT imaging through the pelvis with coronal and sagittal two-dimensional reformats. Automated Exposure Control and Iterative Reconstruction dose reducing techniques were utilized. Findings: Exam is performed for radiation therapy treatment planning purposes. There is a tandem and ovoid device in appropriate position. No evidence of uterine perforation. Velarde catheter within a contrast-filled bladder. No evidence of extravasation. Rectal contrast was also administered. No evidence of colonic perforation. Visualized small and large bowel loops within the pelvis are grossly normal. Bone windows are unremarkable. Left-sided ureteral stent in place. Surgical clips along the left pelvic sidewall. Impression: Radiation therapy treatment device in place without evidence of immediate complication. . Procedures Procedure Status Date Provider(s) Routine venipuncture Completed 01/09/17 Insert uteri tandem/ovoids Completed 01/09/17 NAPOLEON PILLAI MD Metabolic panel total ca Completed 01/09/17 Complete cbc w/auto diff wbc Completed 01/09/17398702"INJECTION, HEPARIN SODIUM, (HEPARIN LOCK FLUSH), PER Completed 003"INJECTION, MIDAZOLAM HYDROCHLORIDE, PER 1 MG" Completed 01/09/17 PROPOFOL INJ 500 MG/50ML Completed 01/09/17403339"INJECTION, FENTANYL CITRATE, 0.1 MG" Completed 01/09/17422874"RINGERS LACTATE INFUSION, UP TO 1000 CC" Completed 01/09/17140091"LOW OSMOLAR CONTRAST MATERIAL, 300-399 MG/ML IODINE C Completed Brachytherapy Completed 01/16/17 NAPOLEON PILLAI MD Encounters Encounter Location Arrival/Admit Date Discharge/Depart Date Attending Provider Departed [facility] 01/16/17 9:23am 01/16/17 12 :31pm NAPOLEON PILLAI MD Departed [facility] 01/09/17 11:20am 01/09/17 2 :25pm NAPOLEON PILLAI MD
[2017-01-30 08:46] VITALS: BP 118/83; PULSE 89; RESP 18; TEMP 97.6; O2SAT 99; Ht 165.1 cm; Wt 95.6 kg
--- NOTE | 2017-01-30 09:09 | ANESPREOP ---
Anesthesia Record Date and Time DATE: 01/30/17 TIME: 09:08 Pre-Op Diagnosis cervical cancer Proposed Surgical Procedure T&O INSERTION #2 NPO since: [place] Allergies: Coded Allergies: metoclopramide (Verified Adverse Reaction, Unknown, RESTLESSNESS, 01/30/17) promethazine (Verified Adverse Reaction, Unknown, RESTLESSNESS, 01/30/17) Ht/Wt/BMI Height: 5 ' 5.00 " Weight: 95.600 kg BMI: 35.1 kg/m2 Vital Signs Date Time Temp Pulse Resp B/P Pulse Ox O2 Delivery O2 Flow Rate FiO2 01/30/17 08:46 97.6 89 18 118/83 99 Room Air Medications Inpatient Medications Current Medications Medications (Trade) Dose Ordered Sig/Samy Start Time Stop Time Status Last Admin Dose Admin Lactated Ringer's (Lactated Ringers) 1,000 ml @ 30 mls/hr Q24H 01/30/17 07:00 Folic Acid (Folic Acid) 1 Mg Tablet, 1 TAB PO DAILY, (Reported) Gabapentin (Gabapentin) 300 Mg Capsule, 1-2 CAP PO TID, (Reported) Ondansetron HCl (Ondansetron HCl) 4 Mg Tablet, 8 MG PO Q8H, (Reported) Oxycodone HCl/Acetaminophen (Oxycodone-Acetaminophen 5-325) 5-325 Tablet, 1-2 TAB PO Q4-6H PRN for PAIN, (Reported) Prochlorperazine Maleate (Prochlorperazine Maleate) 10 Mg Tablet, 1 TAB PO Q6H, (Reported) Currently on Beta Alva: No Medical/Surgical History Anesthesia PMH: Reports: Arthritis (PER H&P), Cancer (CERVICAL), Obesity, Thyroid Disease (HYPOTHYROIDISM PER H&P), Denies: *Diabetes, Anesthesia Reactions (NO AIRWAY ISSUES), Blood Transfusion Reac, Clotting Problems, Glaucoma, Malignant Hyperthermia, Renal Disease, Sleep Apnea Smoking Status: Former smoker # of Packs per Day: 1 # of Years: 13 Use Chewing Tobacco?: No Second Hand Exposure: No Substance Use Type: does not use Alcohol Intake: none Past Surgical History Orthopedic Surgeries: Abdominal Surgeries: Genitourinary Surgeries: Yes - STENTS TO L. KIDNEY Cardiac Surgeries: Endocrine Surgeries: Reproductive Surgeries: Yes - SLEEVE PLACEMENT,MASS REMOVAL,SALPINGO OOPHORECTOMY,T&O INSERTIONS Neurological Surgeries: Ear Surgeries: Nose Surgeries: Throat Surgeries: Other Surgeries: Yes - COLONOSCOPY & EGD Anesthesia Adverse Reactions: FOUND none Family Hx of Anesthesia Advers: none Hx of Motion Sickness: No Pertinent Findings EKG Rhythm: Sinus Rhythm Physical Exam Respiratory: Bilat breath sounds equal, Lungs clear Cardiovascular: FOUND Regular rate, rhythm, FOUND No murmur Airway Assessment Mallampati Score: I TMD: 3 Fingerbreadths Neck Extension: Good Overall Assessment: No Airway Concerns ASA: 3 Plan Anesthesia Plan: TIVA Discussion Discussed risks/options/alternatives of anesthesia and questions answered. Patient consents. Nursing pain assessment noted. Attestation Statement Prior to the delivery of any anesthetic medication, I examined the patient, developed the plan, obtained the patient's consent and discussed the risk and benefits of the procedure with the patient/guardian. RADHAMES SYKES CRNA Jan 30, 2017 09:09
[2017-01-30 09:24] LABS: BASOPHILS % (AUTO) 0.5 % (0-2); EOSINOPHILS # (AUTO) 0.3 T/MM3 (0-0.5); HCT - HEMATOCRIT 33.7 % (36-46); HGB - HEMOGLOBIN 10.1 GM/DL (12-16); IMMATURE GRANULOCYTE # (AUTO) 0.02 T/MM3 (0.00-0.03); IMMATURE GRANULOCYTE % (AUTO) 0.5 % (0.0-0.5); LYMPHOCYTES # (AUTO) 0.5 T/MM3 (1-4.8); LYMPHOCYTES % (AUTO) 10.7 % (23-45); MEAN CORPUSCULAR HGB 32.4 UUG (26-34); MEAN PLATELET VOLUME 10.1 UM3 (9.4-12.4); MONOCYTES # (AUTO) 0.4 T/MM3 (0-0.8); MONOCYTES % (AUTO) 8.4 % (0-9.0); NEUTROPHILS #(AUTO)-ABSOLUTE 3.1 T/MM3 (1.8-7.7); NEUTROPHILS % (AUTO) 72.9 % (33-66); RED BLOOD COUNT 3.12 M/MM3 (4.00-5.20); WBC - WHITE BLOOD COUNT 4.3 T/MM3 (4.5-11.0)
[2017-01-30] MEDS ORDERED: FENTANYL 100mcg/2ml INJECTION ONE (09:29)
[2017-01-30] MEDS ORDERED: PROPOFOL 500mg 50 ML IV ONE (09:29)
[2017-01-30] MEDS ORDERED: KETAMINE 500mg/10ml INJECTION ONE (09:29)
[2017-01-30 09:35] LABS: ANION GAP 10 MEQ/L (5-15); BUN/CREATININE RATIO 20 RATIO (6-26); CHLORIDE 107 MEQ/L (98-107); CO2 - CARBON DIOXIDE 26 MEQ/L (22-30); CREATININE 0.9 MG/DL (0.7-1.2); GLOMERULAR FILTRATION RATE 65; GLUCOSE 97 MG/DL (65-110); POTASSIUM 3.8 MEQ/L (3.6-5); SODIUM 143 MEQ/L (134-144)
[2017-01-30 10:17] VITALS: BP 104/69; PULSE 88; RESP 16; TEMP 97.7; O2SAT 93
--- NOTE | 2017-01-30 10:31 | ANESPO ---
Post-Op Note Date 01/30/17 Time: 10:31 Status Pt Participated in Evaluation: Pt participated in person Vital Signs Date Time Temp Pulse Resp B/P Pulse Ox O2 Delivery O2 Flow Rate FiO2 01/30/17 10:17 97.7 88 16 104/69 93 Room Air Respiratory Function: Airway patent, Regular respirations Cardiovascular Function: Regular pulse Telemetry Pattern: SR Pain Level Intensity: 5 Unable to Assess Pain Due To: Medicated/Sleeping Hydration: IV infusing Complications during Recovery None apparent Follow-Up Instructions Instructions Per Surgeon RADHAMES SYKES CRNA Jan 30, 2017 10:31
[2017-01-30 10:32] VITALS: BP 114/68; PULSE 74; RESP 12; O2SAT 94
[2017-01-30] MEDS: HYDROMORPHONE 2mg/ml INJECTION IV PRN ×3 (10:33→10:59)
[2017-01-30 10:50] VITALS: BP 112/66; PULSE 69; RESP 12; O2SAT 93
[2017-01-30 11:05] VITALS: BP 111/64; PULSE 71; RESP 14; TEMP 97.4; O2SAT 94
--- NOTE | 2017-01-30 11:07 | NUR ---
Transfer pt alert and oriented x3. C/O pressure in vaginal/pelvic area. Transferred to Radiology department for CT. Velarde in place. RN remains with patient during CT.
--- NOTE | 2017-01-30 11:25 | NUR ---
Transfer Pt remains alert and oriented x3. tolerable discomfort to vaginal/pelvic area, describing it as "pressure". Transfer of care to [facility] [place]. Report given to Brittny, Radiation Therapist. To Cancer Center per cart accompanied by Brittny Radiation Therapist and son, "Jules". Velarde remains in place.
--- NOTE | 2017-01-30 11:33 | GSDISC ---
General Date Date DATE: 01/30/17 TIME: 11:28 Attending Physician Abbey Stinson MD Admitting Physician Abbey Stinson MD Consulting Physician Discharge Diagnosis: (1) Cervical carcinoma Status: Chronic Procedures Tandem and ovoid insertion with exam under anesthesia. Laboratory Laboratory Laboratory Tests Test 01/30/17 09:08 White Blood Count 4.3T/MM3 Red Blood Count 3.12M/MM3 Hemoglobin 10.1GM/DL Hematocrit 33.7% Mean Corpuscular Volume 108.0UM3 Mean Corpuscular Hemoglobin 32.4UUG Mean Corpuscular Hemoglobin Concent 30.0GM/DL RDW Standard Deviation 63.8FL Platelet Count 184T/MM3 Mean Platelet Volume 10.1UM3 Immature Granulocyte % (Auto) 0.5% Neutrophils (%) (Auto) 72.9% Lymphocytes (%) (Auto) 10.7% Monocytes (%) (Auto) 8.4% Eosinophils (%) (Auto) 7.0% Basophils (%) (Auto) 0.5% Absolute Immature Granulocyte (auto 0.02T/MM3 Absolute Neutrophils (auto) 3.1T/MM3 Absolute Lymphocytes (auto) 0.5T/MM3 Absolute Monocytes (auto) 0.4T/MM3 Absolute Eosinophils (auto) 0.3T/MM3 Absolute Basophils (auto) 0.0T/MM3 Turbidity < 20 Sodium Level 143MEQ/L Potassium Level 3.8MEQ/L Chloride Level 107MEQ/L Carbon Dioxide Level 26MEQ/L Anion Gap 10MEQ/L Blood Urea Nitrogen 18.0MG/DL Creatinine 0.9MG/DL Glomerular Filtration Rate Calc 65 BUN/Creatinine Ratio 20RATIO Glucose Level 97MG/DL Calculated Osmolality 277MOSM/KG Calcium Level 9.0MG/DL Icterus Index < 2 Chemistry Specimen Hemolysis < 15 Hospital Course Patient prepped and draped in standard fashion. Velarde catheter placed with Hypaque in the balloon. Exam under anesthesia showing good response to treatment. No new findings. 15 degree tandem and medium ovoids placed. Patient has both a cystocele and a rectocele as well as extensive redundancy of the vagina making placement and geometry challenging. Applicator secured with bladder and rectal vaginal packing individually placed. Position secured and patient dismissed to recovery in good condition. Home Meds Reported Medications Prochlorperazine Maleate (Prochlorperazine Maleate) 10 Mg Tablet, 1 TAB PO Q6H for NAUSEA &/OR VOMITING, #60 TAB 3 Refills 01/09/17 Ondansetron HCl (Ondansetron HCl) 4 Mg Tablet, 8 MG PO Q8H, TAB 01/09/17 Gabapentin (Gabapentin) 300 Mg Capsule, 1-2 CAP PO TID, CAP 01/09/17 Folic Acid (Folic Acid) 1 Mg Tablet, 1 TAB PO DAILY, #30 01/08/17 Oxycodone HCl/Acetaminophen (Oxycodone-Acetaminophen 5-325) 5-325 Tablet, 1-2 TAB PO Q4-6H Y for PAIN, #120 01/08/17 Discharge Disposition Dismissed to recovery in good condition. ABBEY STINSON MD Jan 30, 2017 11:32
--- NOTE | 2017-01-30 11:37 | DI ---
Indication: ITS.REASON: Verify applicator placement and R/O complication PROCEDURE: CT PELVIS W/O CONTRAST: Encounter: Subsequent Comparison: CT pelvis dated January 16, 2017 Technique: Axial noncontrast CT imaging through the pelvis with coronal and sagittal two-dimensional reformats. Automated Exposure Control and Iterative Reconstruction dose reducing techniques were utilized. Findings: Exam is performed for radiation therapy treatment planning purposes. There is a tandem and ovoid device in appropriate position. No evidence of uterine perforation. Velarde catheter within a contrast-filled bladder. No evidence of extravasation. Rectal contrast was also administered. No evidence of colonic perforation. Visualized small and large bowel loops within the pelvis are grossly normal. Bone windows are unremarkable. Left-sided ureteral stent in place. Surgical clips along the left pelvic sidewall. Impression: Radiation therapy treatment device in place without evidence of immediate complication. .
== END 2017-01-30 11:25 | disposition home or self-care (01) ==
LOC: SCU 08:31
PROVIDERS: ATTEND Radiology Radiation Oncology
DX: C79.82 Secondary malignant neoplasm of genital organs (principal); Z15.09 Genetic susceptibility to other malignant neoplasm; Z90.722 Acquired absence of ovaries, bilateral; Z90.79 Acquired absence of other genital organ(s); F32.9 Major depressive disorder, single episode, unspecified; E03.9 Hypothyroidism, unspecified; Z79.899 Other long term (current) drug therapy; Z87.891 Personal history of nicotine dependence
CPT/HCPCS: 57155; 72192; 80048; 85025; J0690; J1170; J2704; J3010; J7120; Q9967

== ENCOUNTER 2017-02-11 10:55 | Day surgery (SDC) | payer BC ==
[~2017-02-11] VITALS: Ht 163.8 cm; Wt 95.2 kg
[~2017-02-11 10:55] MED LIST changes: -CEFAZOLIN 1 GRAM INJECTION IV ONE; -IOHEXOL 300 MG/ML 50ml INJECTION ONE
--- OUTSIDE RECORDS SUMMARY | 2017-02-11 11:00 | XMS REPORT | Continuity of Care Document ---
Author Author [facility] Organization [facility] Address Unknown Phone Unavailable Care Team Providers Care Rn Nursery Name Role Phone Ajith Mcintosh Primary Care Physician [phone] Source Comments Some departments are not documenting in the electronic medical record. If you do not see the information that you expected, contact Release of Information in the Health Information Management department at [phone] for further assistance in locating additional records.[facility] Active Allergies and Adverse Reactions No Known [...]
--- OUTSIDE RECORDS SUMMARY | 2017-02-11 11:00 | XMS REPORT | Continuity of Care Document ---
Author Author [facility] Organization [facility] Address Unknown Phone Unavailable Support Name Relationship Address Phone CHEKO AMIN MD Caregiver [address] [place] [address] Unavailable NAPOLEON PILLAI MD Caregiver [address] [place] [address] Unavailable ALYX DURBIN Next Of Kin [address] [place] [address] Insurance Providers Guarantor Lizz Durbin Address [address] [place] [address] Email [email or web address] Payer [facility] Policy Number [id number] Subscriber's Name Alyx Durbin Relationship 01 Spouse Group Number [id number] Advance Directives Directive Response Recorded Date/Time Dr Ordered Resuscitation Status Full Code 01/29/17 4:29pm Resuscitation Documents on File No 01/30/17 9:15am DPOA for Healthcare Only No 01/30/17 9:15am Living Will No 01/30/17 9:15am Problems Active Problems Medical Problem Onset Date [...] Problem Response Recorded Date/Time Onset Date Status Hx Substance Use No 01/16/2017 10:19am Not Applicable Not Applicable Hx Alcohol Use Y OCC 01/16/2017 10:19am Not Applicable Not Applicable Has the pt used tobacco in the last 12 months No 01/16/2017 10:19am Not Applicable Not Applicable Query Response Start Date Stop Date Smoking Status Never smoker Hospital Discharge Instructions No hospital discharge instructions. Plan of Care Discharge Date 01/30/17 11:25am Prescriptions See Medication Section Functional Status Query Response Date Recorded Ability to complete ADL's impeded by No change January 30, 2017 9:15am Allergies, Adverse Reactions, Alerts Allergen Type Severity Reaction Status Last Updated Promethazine Adverse Reaction Unknown RESTLESSNESS Active 01/30/17 Metoclopramide Adverse Reaction Unknown RESTLESSNESS Active 01/30/17 Immunizations Query Response on File Recorded Date/Time Hx Influenza Vaccination No 01/16/17 10:19am Hx Pneumococcal Vaccination No 01/16/17 10:19am Hx Influenza Vaccination No 01/16/17 10:19am Vital Signs Acute Vital Signs Vital Response Date/Time Temperature (Fahrenheit) 97.4 deg F (96.8 - 99.1) 01/30/2017 11:05am Temperature (Calculated Celsius) 36.50539 degrees C (36.0 - 37.3) 01/30/2017 11:05am Temperature Source Axillary 01/30/2017 11:05am Pulse Rate (adult) 71 bpm (60 - 100) 01/30/2017 11:05am Respiratory Rate 14 breaths/min (10 - 20) 01/30/2017 11:05am O2 Sat by Pulse Oximetry 94 % (90 - 100) 01/30/2017 11:05am Oxygen Delivery Method Room Air 01/30/2017 11:05am Oxygen Flow Rate 6.00 L/min 01/16/2017 11:22am Blood Pressure 111/64 mm Hg 01/30/2017 11:05am Blood Pressure Source Automatic Cuff 01/30/2017 11:05am Height (Feet) 5 feet 01/30/2017 8:46am Height (Inches) 5.00 inches 01/30/2017 8:46am Weight (Kilograms) 95.600 kg 01/30/2017 8:46am Body Mass Index (BMI) 35.1 01/30/2017 8:46am Results Laboratory Results Test Name Result Units Flags Reference Collection Date/Time Result Date/ Time Comments Eosinophils % (Manual) 8.0 % H 0-4 01/09/2017 12:15pm 01/09/2017 12: 52pm Eosinophils # (Manual) 0.1 T/MM3 0-0.5 01/09/2017 12:15pm 01/09/2017 12 :52pm Neutrophils % (Manual) 54.0 % 33-66 01/16/2017 [...] Drop Cells 1+ 01/16/2017 9:52am 01/16/2017 10:17am White Blood Count 4.3 T/MM3 L 4.5-11.0 01/30/2017 9:08am 01/30/2017 9: 24am Red Blood Count 3.12 M/MM3 L 4.00-5.20 01/30/2017 9:0801/30/2017 9: 24am Hemoglobin 10.1 GM/DL L 12-16 01/30/2017 9:0801/30/2017 9:24am Hematocrit 33.7 % L 36-46 01/30/2017 9:0801/30/2017 9:24am Mean Corpuscular Volume 108.0 UM3 H 80-100 01/30/2017 9:0801/30/2017 9:24am Mean Corpuscular Hemoglobin 32.4 UUG 26-34 01/30/2017 9:082016 9:24am Mean Corpuscular Hemoglobin Concent 30.0 GM/DL L 31-37 01/30/2017 9:0801/30/2017 9:24am RDW Standard Deviation 63.8 FL H 36.9-50.2 01/30/2017 9:0801/30/2017 9:24am Platelet Count 184 T/MM3 130-400 01/30/2017 9:0801/30/2017 9:24am Mean Platelet Volume 10.1 UM3 9.4-12.4 01/30/2017 9:0801/30/2017 9: 24am Neutrophils (%) (Auto) 72.9 % H 33-66 01/30/2017 9:0801/30/2017 9: 24am Lymphocytes (%) (Auto) 10.7 % L 23-45 01/30/2017 9:01/30/2017 9: 24am Monocytes (%) (Auto) 8.4 % 0-9.0 01/30/2017 9:01/30/2017 9:24am Eosinophils (%) (Auto) 7.0 % H 0-4 01/30/2017 9:0801/30/2017 9:24am Basophils (%) (Auto) 0.5 % 0-2 01/30/2017 9:01/30/2017 9:24am Immature Granulocyte % (Auto) 0.5 % 0.0-0.5 01/30/2017 9:2016 9:24am Absolute Neutrophils (auto) 3.1 T/MM3 1.8-7.7 01/30/2017 9:2016 9:24am Absolute Lymphocytes (auto) 0.5 T/MM3 L 1-4.8 01/30/2017 9:2016 9:24am Absolute Monocytes (auto) 0.4 T/MM3 0-0.8 01/30/2017 9:01/30/2017 9:24am Absolute Eosinophils (auto) 0.3 T/MM3 0-0.5 01/30/2017 9:082016 9:24am Absolute Basophils (auto) 0.0 T/MM3 0-0.2 01/30/2017 9:0801/30/2017 9:24am Absolute Immature Granulocyte (auto 0.02 T/MM3 0.00-0.03 01/30/2017 9: 01/30/2017 9:24am Icterus Index < 2 0-7 01/30/2017 9:01/30/2017 9:35am Chemistry Specimen Hemolysis < 15 0-25 01/30/2017 9:0801/30/2017 9 :35am 0-25: Specimen Exhibited No Hemolysis. Turbidity < 20 0-20 01/30/2017 9:01/30/2017 9:35am Sodium Level 143 MEQ/L 134-144 01/30/2017 9:0801/30/2017 9:35am Potassium Level 3.8 MEQ/L 3.6-5 01/30/2017 9:0801/30/2017 9:35am Chloride Level 107 MEQ/L 98-107 01/30/2017 9:08am 01/30/2017 9:35am Carbon Dioxide Level 26 MEQ/L 22-30 01/30/2017 9:0801/30/2017 9: 35am Anion Gap 10 MEQ/L 5-15 01/30/2017 9:08am 01/30/2017 9:35am Blood Urea Nitrogen 18.0 MG/DL H 7-17 01/30/2017 9:0801/30/2017 9: 35am Creatinine 0.9 MG/DL 0.7-1.2 01/30/2017 9:0801/30/2017 9:35am BUN/Creatinine Ratio 20 RATIO 6-26 01/30/2017 9:0801/30/2017 9:35am Glomerular Filtration Rate Calc 65 01/30/2017 9:08am 01/30/2017 9: 35am Glucose Level 97 MG/DL 65-110 01/30/2017 9:0801/30/2017 9:35am Calculated Osmolality 277 MOSM/KG 261-280 01/30/2017 9:0801/30/2017 9:35am Calcium Level 9.0 MG/DL 8.4-10.2 01/30/2017 9:08am 01/30/2017 9:35am Name: LIZZ DURBIN Unit #: [id number] : 1965 Sex: F Admit Date: Loc / Svc: SCU Discharge Date: DIAGNOSTIC IMAGING REPORT Report #: [id number] [facility] IMELDA Flores Indication: ITS.REASON: Verify applicator placement and R/O complication PROCEDURE: CT PELVIS W/O CONTRAST: Encounter: Subsequent Comparison: CT pelvis dated January 16, 2017 Technique: Axial noncontrast CT imaging through the [...] 01/09/17 Complete cbc w/auto diff wbc Completed 01/09/17325822"INJECTION, HEPARIN SODIUM, (HEPARIN LOCK FLUSH), PER Completed 003"INJECTION, MIDAZOLAM HYDROCHLORIDE, PER 1 MG" Completed 01/09/17 PROPOFOL INJ 500 MG/50ML Completed 01/09/17463182"INJECTION, FENTANYL CITRATE, 0.1 MG" Completed 01/09/17403542"RINGERS LACTATE INFUSION, UP TO 1000 CC" Completed 01/09/17465590"LOW OSMOLAR CONTRAST MATERIAL, 300-399 MG/ML IODINE C Completed Insert uteri tandem/ovoids Completed 01/16/[address] pelvis w/o dye Completed 01/16/17 Metabolic panel total ca Completed 01/16/17 Complete cbc w/auto diff wbc Completed 01/16/17280726"INJECTION, CEFAZOLIN SODIUM, 500 MG" Completed 01/16/17627539"INJECTION, DEXAMETHASONE SODIUM PHOSPHATE, 1MG" Completed 01/16/17251199"INJECTION, HYDROMORPHONE, UP TO 4 MG" Completed 01/16/17746950"INJECTION, HYDROMORPHONE, UP TO 4 MG" Completed 01/16/17 PROPOFOL INJ 500 MG/50ML Completed 01/16/17921597"INJECTION, FENTANYL CITRATE, 0.1 MG" Completed 01/16/17975143"RINGERS LACTATE INFUSION, UP TO 1000 CC" Completed 01/16/17675417"LOW OSMOLAR CONTRAST MATERIAL, 300-399 MG/ML IODINE C Completed 003"LOW OSMOLAR CONTRAST MATERIAL, 300-399 MG/ML IODINE C Completed Brachytherapy Completed 01/30/17 NAPOLEON PILLAI MD Encounters Encounter Location Arrival/Admit Date Discharge/Depart Date Attending Provider Registered Surgical [facility] 01/30/17 8:31am NAPOLEON CRAIG MD Departed Surgical [facility] 01/16/17 9:23am 01/16/17 12 :31pm NAPOLEON PILLAI MD Departed Surgical [facility] 01/09/17 11:20am 01/09/17 2 :25pm NAPOLEON PILLAI MD
[2017-02-11 11:02] VITALS: Ht 163.8 cm; Wt 95.2 kg
[2017-02-11] MEDS ORDERED: IOHEXOL 300 MG/ML 50ml INJECTION ONE ×2 (11:03→12:19)
[2017-02-11 11:10] VITALS: BP 132/86; PULSE 72; RESP 16; TEMP 97.8; O2SAT 100
[2017-02-11 11:47] LABS: BASOPHILS % (AUTO) 0.5 % (0-2); EOSINOPHILS # (AUTO) 0.4 T/MM3 (0-0.5); EOSINOPHILS % (AUTO) 10.3 % (0-4); HCT - HEMATOCRIT 35.8 % (36-46); HGB - HEMOGLOBIN 10.7 GM/DL (12-16); LYMPHOCYTES # (AUTO) 0.6 T/MM3 (1-4.8); LYMPHOCYTES % (AUTO) 13.3 % (23-45); MEAN CORPUSCULAR HGB 31.5 UUG (26-34); MEAN CORPUSCULAR HGB CONC(MCHC 29.9 GM/DL (31-37); MEAN CORPUSCULAR VOLUME 105.3 UM3 (80-100); MEAN PLATELET VOLUME 9.3 UM3 (9.4-12.4); MONOCYTES # (AUTO) 0.3 T/MM3 (0-0.8); MONOCYTES % (AUTO) 6.8 % (0-9.0); NEUTROPHILS % (AUTO) 69.1 % (33-66); WBC - WHITE BLOOD COUNT 4.3 T/MM3 (4.5-11.0)
[2017-02-11 11:56] LABS: ANION GAP 10 MEQ/L (5-15); BUN/CREATININE RATIO 18 RATIO (6-26); CALCIUM 9.3 MG/DL (8.4-10.2); CHLORIDE 106 MEQ/L (98-107); CO2 - CARBON DIOXIDE 27 MEQ/L (22-30); GLOMERULAR FILTRATION RATE 58; GLUCOSE 96 MG/DL (65-110); POTASSIUM 4.5 MEQ/L (3.6-5); SODIUM 143 MEQ/L (134-144)
--- NOTE | 2017-02-11 12:08 | ANESPREOP ---
Anesthesia Record Date and Time DATE: 02/11/17 TIME: 12:00 Proposed Surgical Procedure T&O #3 Allergies: Coded Allergies: metoclopramide (Verified Adverse Reaction, Unknown, RESTLESSNESS, 02/11/17) promethazine (Verified Adverse Reaction, Unknown, RESTLESSNESS, 02/11/17) Ht/Wt/BMI Height: 5 ' 4.50 " Weight: 95.200 kg BMI: 35.5 kg/m2 Vital Signs Date Time Temp Pulse Resp B/P Pulse Ox O2 Delivery O2 Flow Rate FiO2 02/11/17 11:10 97.8 72 16 132/86 100 Room Air Medications Inpatient Medications Current Medications Medications (Trade) Dose Ordered Sig/Samy Start Time Stop Time Status Last Admin Dose Admin Lactated Ringer's (Lactated Ringers) 1,000 ml @ 30 mls/hr Q24H 02/11/17 07:00 Folic Acid (Folic Acid) 1 Mg Tablet, 1 TAB PO DAILY, (Reported) Last Taken: on 02/10/17 0700 Gabapentin (Gabapentin) 300 Mg Capsule, 1-2 CAP PO TID, (Reported) Last Taken: on 02/10/17 2200 Ondansetron HCl (Ondansetron HCl) 4 Mg Tablet, 8 MG PO Q8H, (Reported) Last Taken: on 02/11/17 0900 Oxycodone HCl/Acetaminophen (Oxycodone- Acetaminophen 5-325) 5-325 Tablet, 1-2 TAB PO Q4-6H PRN for PAIN, (Reported) Last Taken: on 02/10/17 2200 Prochlorperazine Maleate (Prochlorperazine Maleate) 10 Mg Tablet, 1 TAB PO Q6H, (Reported) Last Taken: on 02/09/17 0700 Currently on Beta Alva: No Medical/Surgical History Anesthesia PMH: Reports: Arthritis (PER H&P), Cancer (CERVICAL), Obesity, Thyroid Disease (HYPOTHYROIDISM PER H&P), Denies: *Diabetes, Anesthesia Reactions (NO AIRWAY ISSUES), Blood Transfusion Reac, Clotting Problems, Glaucoma, Malignant Hyperthermia, Renal Disease, Sleep Apnea Smoking Status: Former smoker (quit 25+ years ago) # of Packs per Day: 1 # of Years: 13 Use Chewing Tobacco?: No Second Hand Exposure: No Substance Use Type: does not use Alcohol Intake: none Past Surgical History Orthopedic Surgeries: Abdominal Surgeries: Genitourinary Surgeries: Yes - STENTS TO L. KIDNEY Cardiac Surgeries: Endocrine Surgeries: Reproductive Surgeries: Yes - SLEEVE PLACEMENT,MASS REMOVAL,SALPINGO OOPHORECTOMY,T&O INSERTIONS Neurological Surgeries: Ear Surgeries: Nose Surgeries: Throat Surgeries: Other Surgeries: Yes - COLONOSCOPY & EGD Anesthesia Adverse Reactions: FOUND none Pertinent Findings Laboratory Tests 02/11/17 11:34 EKG Rhythm: Sinus Rhythm Physical Exam Respiratory: Lungs clear Cardiovascular: FOUND Regular rate, rhythm Airway Assessment Mallampati Score: II TMD: 3 Fingerbreadths Neck Extension: Good Overall Assessment: No Airway Concerns ASA: 3 Plan Anesthesia Plan: TIVA Discussion Discussed risks/options/alternatives of anesthesia and questions answered. Patient consents. Nursing pain assessment noted. Attestation Statement Prior to the delivery of any anesthetic medication, I examined the patient, developed the plan, obtained the patient's consent and discussed the risk and benefits of the procedure with the patient/guardian. BÁRBARA STYLES CRNA Feb 11, 2017 12:03
[2017-02-11] MEDS ORDERED: KETAMINE 500mg/10ml INJECTION ONE (12:23)
[2017-02-11] MEDS ORDERED: ONDANSETRON 4mg/2ml INJECTION ONE (12:23)
[2017-02-11] MEDS ORDERED: PROPOFOL 500mg 50 ML IV ONE (12:23)
[2017-02-11] MEDS ORDERED: MIDAZOLAM 2mg/2ml INJECTION ONE (12:23)
[2017-02-11] MEDS ORDERED: KETOROLAC 30mg/ml INJECTION ONE (12:23)
[2017-02-11] MEDS ORDERED: FENTANYL 100mcg/2ml INJECTION ONE (12:23)
[2017-02-11] MEDS ORDERED: CEFAZOLIN 1 GRAM INJECTION IV ONE (12:30)
[2017-02-11 13:26] VITALS: BP 106/76; PULSE 74; RESP 16; TEMP 97; O2SAT 100
[2017-02-11] MEDS: HYDROMORPHONE 2mg/ml INJECTION IV PRN ×3 (13:35→13:58)
[2017-02-11 13:40] VITALS: BP 124/80; PULSE 65; RESP 11; O2SAT 94
[2017-02-11] MEDS ORDERED: ONDANSETRON 4mg/2ml INJECTION IV PRN (13:45)
[2017-02-11 13:55] VITALS: BP 115/71; PULSE 59; RESP 14; O2SAT 92
[2017-02-11 14:10] VITALS: BP 120/72; PULSE 60; RESP 14; O2SAT 94
--- NOTE | 2017-02-11 14:13 | NUR ---
TRANSFER PT TO IMAGING FOR CT PER CART ACCOMPANIED BY RN. RN REMAINS WITH PT THROUGHOUT CT SCAN.
--- NOTE | 2017-02-11 14:13 | NUR ---
PAC SALINE LOCKED PORT-A-CATH SALINE LOCKED AND LEFT ACCESSED UPON DISCHARGE FROM SCU PER DOCTOR'S ORDER
--- NOTE | 2017-02-11 14:31 | NUR ---
TRANSFER TRANSFER OF CARE TO [facility]. REPORT GIVEN TO ROBB WILSONRT. PT TO CANCER CENTER PER CART ACCOMPANIED BY EVELIA WILSON. TYSON PATENT.
--- NOTE | 2017-02-11 14:41 | ANESPO ---
Post-Op Note Date 02/11/17 Time: 14:40 Status Pt Participated in Evaluation: Pt participated in person Vital Signs Date Time Temp Pulse Resp B/P Pulse Ox O2 Delivery O2 Flow Rate FiO2 02/11/17 13:58 18 02/11/17 13:55 59 115/71 92 Room Air 02/11/17 13:26 97.0 6.00 Respiratory Function: Airway patent, Regular respirations Cardiovascular Function: Regular pulse Mental Status: Alert/oriented Pain Level Intensity: 3 Hydration: Taking po fluids Complications during Recovery None apparent Follow-Up Instructions Instructions Per Surgeon ESSIE KELLY I BEHAVIORAL SPECIALIST Feb 11, 2017 14:41
--- NOTE | 2017-02-11 15:03 | DI ---
Indication: ITS.REASON: VERIFY APPLICATOR PLACEMENT AND R/O POSTOP COMPLICATION PROCEDURE: CT PELVIS W/O CONTRAST: Encounter: Subsequent Comparison: CT pelvis dated January 30, 2017 Technique: Axial noncontrast CT imaging through the pelvis with coronal and sagittal two-dimensional reformats. Automated Exposure Control and Iterative Reconstruction dose reducing techniques were utilized. Findings: Exam is performed for radiation therapy treatment planning purposes. There is a tandem and ovoid device in appropriate position. No evidence of uterine perforation. Velarde catheter within a contrast-filled bladder. No evidence of extravasation. Rectal contrast was also administered. No evidence of colonic perforation. Visualized small and large bowel loops within the pelvis are grossly normal. Bone windows are unremarkable. Left-sided ureteral stent in place. Surgical clips along the left pelvic sidewall. Impression: Radiation therapy treatment device in place without evidence of immediate complication. .
--- NOTE | 2017-02-11 17:35 | GSDISC ---
General Date Date DATE: 02/11/17 TIME: 17:31 Attending Physician Abbey Stinson MD Admitting Physician Abbey Stinson MD Consulting Physician Discharge Diagnosis: (1) Cervical carcinoma Status: Chronic Procedures Tandem and ovoid insertion with exam under anesthesia. Laboratory Laboratory Laboratory Tests Test 02/11/17 11:34 White Blood Count 4.3T/MM3 Red Blood Count 3.40M/MM3 Hemoglobin 10.7GM/DL Hematocrit 35.8% Mean Corpuscular Volume 105.3UM3 Mean Corpuscular Hemoglobin 31.5UUG Mean Corpuscular Hemoglobin Concent 29.9GM/DL RDW Standard Deviation 59.8FL Platelet Count 172T/MM3 Mean Platelet Volume 9.3UM3 Immature Granulocyte % (Auto) 0.0% Neutrophils (%) (Auto) 69.1% Lymphocytes (%) (Auto) 13.3% Monocytes (%) (Auto) 6.8% Eosinophils (%) (Auto) 10.3% Basophils (%) (Auto) 0.5% Absolute Immature Granulocyte (auto 0.00T/MM3 Absolute Neutrophils (auto) 3.0T/MM3 Absolute Lymphocytes (auto) 0.6T/MM3 Absolute Monocytes (auto) 0.3T/MM3 Absolute Eosinophils (auto) 0.4T/MM3 Absolute Basophils (auto) 0.0T/MM3 Turbidity < 20 Sodium Level 143MEQ/L Potassium Level 4.5MEQ/L Chloride Level 106MEQ/L Carbon Dioxide Level 27MEQ/L Anion Gap 10MEQ/L Blood Urea Nitrogen 18.0MG/DL Creatinine 1.0MG/DL Glomerular Filtration Rate Calc 58 BUN/Creatinine Ratio 18RATIO Glucose Level 96MG/DL Calculated Osmolality 277MOSM/KG Calcium Level 9.3MG/DL Icterus Index < 2 Chemistry Specimen Hemolysis < 15 Hospital Course Patient prepped and draped in standard fashion. Exam under anesthesia showing good anatomy of the cervix, however, patient has extreme redundancy of vaginal tissue as well as a cysto and rectocele. The extra tissue made placement difficult. No signs of recurrence. Velarde placed with Hypaque in balloon. 15 degree tandem placed with medium ovoids. Two vaginal packs were placed, one anterior the bladder and one posterior the rectum. Rectal tube placed for contrast to follow in CT. Patient was dismissed to recovery in good condition. Home Meds Reported Medications Prochlorperazine Maleate (Prochlorperazine Maleate) 10 Mg Tablet, 1 TAB PO Q6H for NAUSEA &/OR VOMITING, #60 TAB 3 Refills 01/09/17 Ondansetron HCl (Ondansetron HCl) 4 Mg Tablet, 8 MG PO Q8H, TAB 01/09/17 Gabapentin (Gabapentin) 300 Mg Capsule, 1-2 CAP PO TID, CAP 01/09/17 Folic Acid (Folic Acid) 1 Mg Tablet, 1 TAB PO DAILY, #30 01/08/17 Oxycodone HCl/Acetaminophen (Oxycodone-Acetaminophen 5-325) 5-325 Tablet, 1-2 TAB PO Q4-6H Y for PAIN, #120 01/08/17 Discharge Disposition Dismissed to recovery in good condition. ABBEY STINSON MD Feb 11, 2017 17:35
== END 2017-02-11 14:31 | disposition home or self-care (01) ==
LOC: SCU 10:55
PROVIDERS: ATTEND Radiology Radiation Oncology
DX: C79.82 Secondary malignant neoplasm of genital organs (principal); N81.6 Rectocele; Z15.09 Genetic susceptibility to other malignant neoplasm; Z90.722 Acquired absence of ovaries, bilateral; Z90.79 Acquired absence of other genital organ(s); F32.9 Major depressive disorder, single episode, unspecified; E03.9 Hypothyroidism, unspecified; E66.9 Obesity, unspecified; Z68.36 Body mass index [BMI] 36.0-36.9, adult; Z79.899 Other long term (current) drug therapy; Z87.891 Personal history of nicotine dependence
CPT/HCPCS: 57155; 72192; 80048; 85025; J0690; J1170; J1885; J2250; J2405; J2704; J3010; J7120; Q9967

== ENCOUNTER 2017-02-13 08:14 | Day surgery (SDC) | payer BC ==
[~2017-02-13] VITALS: Ht 163.8 cm; Wt 97.1 kg
[2017-02-13] VITALS (7 sets, daily range): BP systolic 88–153; BP diastolic 60–91; PULSE 60–76; RESP 14–16; TEMP 97.4–97.8; O2SAT 92–100; Ht 163.8 cm; Wt 97.1 kg
[~2017-02-13 08:14] MED LIST changes: +CEFAZOLIN 1 GRAM INJECTION IV ONE; +IOHEXOL 300 MG/ML 50ml INJECTION ONE
--- OUTSIDE RECORDS SUMMARY | 2017-02-13 08:17 | XMS REPORT | Continuity of Care Document ---
Author Author [facility] Organization [facility] Address Unknown Phone Unavailable Care Team Providers Care Plant Operator Control Room Operator Name Role Phone Ajith Mcintosh Primary Care Physician [phone] Source Comments Some departments are not documenting in the electronic medical record. If you do not see the information that you expected, contact Release of Information in the Health Information Management department at [phone] for further assistance in locating additional records.[facility] Active Allergies and Adverse Reactions [...]
--- OUTSIDE RECORDS SUMMARY | 2017-02-13 08:18 | XMS REPORT | Continuity of Care Document ---
Author Author [facility] Organization [facility] Address Unknown Phone Unavailable Support Name Relationship Address Phone CHEKO AMIN MD Caregiver [address] [place] [address] Unavailable NAPOLEON PILLAI MD Caregiver [address] [place] [address] Unavailable ALYX DURBIN Next Of Kin [address] [place] [address] Insurance Providers Guarantor Lizz Durbin Address [address] [place] [address] Email [email or web address] Payer [facility] Policy Number [id number] Subscriber's Name Alyx Durbin Relationship 01 Spouse Group Number [id number] Advance Directives Directive Response Recorded Date/Time Dr Ordered Resuscitation Status Full Code 02/10/17 1:40pm Resuscitation Documents on File Yes 02/11/17 11:50am DPOA for Healthcare Only No 02/11/17 11:50am Living Will No 02/11/17 11:50am Problems Active Problems Medical Problem Onset Date [...] Response Start Date Stop Date Smoking Status Unknown if ever smoked Hospital Discharge Instructions No hospital discharge instructions. Plan of Care Discharge Date 02/11/17 2:31pm Prescriptions See Medication Section Functional Status Query Response Date Recorded Ability to complete ADL's impeded by No change February 11, 2017 11:50am Allergies, Adverse Reactions, Alerts Allergen Type Severity Reaction Status Last Updated Promethazine Adverse Reaction Unknown RESTLESSNESS Active 02/11/17 Metoclopramide Adverse Reaction Unknown RESTLESSNESS Active 02/11/17 Immunizations Query Response on File Recorded Date/Time Hx Influenza Vaccination No 01/16/17 10:19am Hx Pneumococcal Vaccination No 01/16/17 10:19am Hx Influenza Vaccination No 01/16/17 10:19am Vital Signs Acute Vital Signs Vital Response Date/Time Temperature (Fahrenheit) 97.0 deg F (96.8 - 99.1) 02/11/2017 1:26pm Temperature (Calculated Celsius) 36.91074 degrees C (36.0 - 37.3) 02/11/2017 1:26pm Temperature Source Axillary 02/11/2017 1:26pm Pulse Rate (adult) 60 bpm (60 - 100) 02/11/2017 2:10pm Respiratory Rate 14 breaths/min (10 - 20) 02/11/2017 2:10pm O2 Sat by Pulse Oximetry 94 % (90 - 100) 02/11/2017 2:10pm Oxygen Delivery Method Room Air 02/11/2017 2:10pm Oxygen Flow Rate 6.00 L/min 02/11/2017 1:26pm Blood Pressure 120/72 mm Hg 02/11/2017 2:10pm Blood Pressure Source Automatic Cuff 02/11/2017 2:10pm Height (Feet) 5 feet 02/11/2017 11:02am Height (Inches) 4.50 inches 02/11/2017 11:02am Weight (Kilograms) 95.200 kg 02/11/2017 11:02am Body Mass Index (BMI) 35.5 02/11/2017 11:02am Results Laboratory Results Test Name Result Units [...] White Blood Count 4.3 T/MM3 L 4.5-11.0 02/11/2017 11:34am 02/11/2017 11: 47am Red Blood Count 3.40 M/MM3 L 4.00-5.20 02/11/2017 11:34am 02/11/2017 11: 47am Hemoglobin 10.7 GM/DL L 12-16 02/11/2017 11:34am 02/11/2017 11:47am Hematocrit 35.8 % L 36-46 02/11/2017 11:34am 02/11/2017 11:47am Mean Corpuscular Volume 105.3 UM3 H 80-100 02/11/2017 11:34am 2016 11:47am Mean Corpuscular Hemoglobin 31.5 UUG 26-34 02/11/2017 11:34am 2016 11:47am Mean Corpuscular Hemoglobin Concent 29.9 GM/DL L 31-37 02/11/2017 11: 34am 02/11/2017 11:47am RDW Standard Deviation 59.8 FL H 36.9-50.2 02/11/2017 11:34am 2016 11:47am Platelet Count 172 T/MM3 130-400 02/11/2017 11:34am 02/11/2017 11:47am Mean Platelet Volume 9.3 UM3 L 9.4-12.4 02/11/2017 11:34am 02/11/2017 11 :47am Neutrophils (%) (Auto) 69.1 % H 33-66 02/11/2017 11:34am 02/11/2017 11: 47am Lymphocytes (%) (Auto) 13.3 % L 23-45 02/11/2017 11:34a 02/11/2017 11: 47am Monocytes (%) (Auto) 6.8 % 0-9.0 02/11/2017 11:34a 02/11/2017 11:47am Eosinophils (%) (Auto) 10.3 % H 0-4 02/11/2017 11:34a 02/11/2017 11: 47am Basophils (%) (Auto) 0.5 % 0-2 02/11/2017 11:34a 02/11/2017 11:47am Immature Granulocyte % (Auto) 0.0 % 0.0-0.5 02/11/2017 11:34a 2016 11:47am Absolute Neutrophils (auto) 3.0 T/MM3 1.8-7.7 02/11/2017 11:34a 2016 11:47am Absolute Lymphocytes (auto) 0.6 T/MM3 L 1-4.8 02/11/2017 11:34a 2016 11:47am Absolute Monocytes (auto) 0.3 T/MM3 0-0.8 02/11/2017 11:34a 2016 11:47am Absolute Eosinophils (auto) 0.4 T/MM3 0-0.5 02/11/2017 11:34a 2016 11:47am Absolute Basophils (auto) 0.0 T/MM3 0-0.2 02/11/2017 11:34a 2016 11:47am Absolute Immature Granulocyte (auto 0.00 T/MM3 0.00-0.03 02/11/2017 11: 34a 02/11/2017 11:47am Icterus Index < 2 0-7 02/11/2017 11:34a 02/11/2017 11:56am Chemistry Specimen Hemolysis < 15 0-25 02/11/2017 11:34a 02/11/2017 11:56am 0-25: Specimen Exhibited No Hemolysis. Turbidity < 20 0-20 02/11/2017 11:34am 02/11/2017 11:56am Sodium Level 143 MEQ/L 134-144 02/11/2017 11:34am 02/11/2017 11:56am Potassium Level 4.5 MEQ/L 3.6-5 02/11/2017 11:34a02/11/2017 11:56am Chloride Level 106 MEQ/L 98-107 02/11/2017 11:34am 02/11/2017 11:56am Carbon Dioxide Level 27 MEQ/L 22-30 02/11/2017 11:34a02/11/2017 11: 56am Anion Gap 10 MEQ/L 5-15 02/11/2017 11:34am 02/11/2017 11:56am Blood Urea Nitrogen 18.0 MG/DL H 7-17 02/11/2017 11:34am 02/11/2017 11: 56am Creatinine 1.0 MG/DL 0.7-1.2 02/11/2017 11:34a02/11/2017 11:56am BUN/Creatinine Ratio 18 RATIO 6-26 02/11/2017 11:34a02/11/2017 11: 56am Glomerular Filtration Rate Calc 58 02/11/2017 11:34am 02/11/2017 11 :56am Glucose Level 96 MG/DL 65-110 02/11/2017 11:34a02/11/2017 11:56am Calculated Osmolality 277 MOSM/KG 261-280 02/11/2017 11:34a2016 11:56am Calcium Level 9.3 MG/DL 8.4-10.2 02/11/2017 11:34a02/11/2017 11:56am Name: LIZZ DURBIN Unit #: [id number] : 1965 Sex: F Admit Date: Loc / Svc: SCU Discharge Date: DIAGNOSTIC IMAGING REPORT Report #: [id number] [facility] IMELDA Flores Indication: ITS.REASON: VERIFY APPLICATOR PLACEMENT AND R/O POSTOP COMPLICATION PROCEDURE: CT PELVIS W/O CONTRAST: Encounter: Subsequent Comparison: CT pelvis dated January 30, 2017 Technique: Axial noncontrast CT imaging through [...] 01/09/17 Complete cbc w/auto diff wbc Completed 01/09/17544628"INJECTION, HEPARIN SODIUM, (HEPARIN LOCK FLUSH), PER Completed 003"INJECTION, MIDAZOLAM HYDROCHLORIDE, PER 1 MG" Completed 01/09/17 PROPOFOL INJ 500 MG/50ML Completed 01/09/17562319"INJECTION, FENTANYL CITRATE, 0.1 MG" Completed 01/09/17211482"RINGERS LACTATE INFUSION, UP TO 1000 CC" Completed 01/09/17484561"LOW OSMOLAR CONTRAST MATERIAL, 300-399 MG/ML IODINE C Completed Insert uteri tandem/ovoids Completed 01/16/[address] pelvis w/o dye Completed 01/16/17 Metabolic panel total ca Completed 01/16/17 Complete cbc w/auto diff wbc Completed 01/16/17553225"INJECTION, CEFAZOLIN SODIUM, 500 MG" Completed 01/16/17016383"INJECTION, DEXAMETHASONE SODIUM PHOSPHATE, 1MG" Completed 01/16/17532317"INJECTION, HYDROMORPHONE, UP TO 4 MG" Completed 01/16/17010474"INJECTION, HYDROMORPHONE, UP TO 4 MG" Completed 01/16/17 PROPOFOL INJ 500 MG/50ML Completed 01/16/17935551"INJECTION, FENTANYL CITRATE, 0.1 MG" Completed 01/16/17719454"RINGERS LACTATE INFUSION, UP TO 1000 CC" Completed 01/16/17073116"LOW OSMOLAR CONTRAST MATERIAL, 300-399 MG/ML IODINE C Completed 03/23/ 17 [id number]"LOW OSMOLAR CONTRAST MATERIAL, 300-399 MG/ML IODINE C Completed Insert uteri tandem/ovoids Completed 01/30/[address] pelvis w/o dye Completed 01/30/17 Metabolic panel total ca Completed 01/30/17 Complete cbc w/auto diff wbc Completed 01/30/17 [id number]"INJECTION, CEFAZOLIN SODIUM, 500 MG" Completed 01/30/17 078210"INJECTION, HYDROMORPHONE, UP TO 4 MG" Completed 01/30/17 PROPOFOL INJ 500 MG/50ML Completed 01/30/17 [id number]"INJECTION, FENTANYL CITRATE, 0.1 MG" Completed 01/30/17"RINGERS LACTATE INFUSION, UP TO 1000 CC" Completed 01/30/17 [id number]"LOW OSMOLAR CONTRAST MATERIAL, 300-399 MG/ML IODINE C Completed "LOW OSMOLAR CONTRAST MATERIAL, 300-399 MG/ML IODINE C Completed Brachytherapy Completed 02/11/17 NAPOLEON PILLAI MD Encounters Encounter Location Arrival/Admit Date Discharge/Depart Date Attending Provider Departed [facility] 02/11/17 10:55am 02/11/17 2 :31pm NAPOLEON PILLAI MD Departed [facility] 01/30/17 8:31am 01/30/17 11 :25am NAPOLEON PILLAI MD Departed [facility] 01/16/17 9:23am 01/16/17 12 :31pm NAPOLEON PILLAI MD Departed [facility] 01/09/17 11:20am 01/09/17 2 :25pm NAPOLEON PILLAI MD
--- NOTE | 2017-02-13 08:33 | ANESPREOP ---
Anesthesia Record Date and Time DATE: 02/13/17 TIME: 08:32 Pre-Op Diagnosis cervical cancer Proposed Surgical Procedure T&O #4 Allergies: Coded Allergies: metoclopramide (Verified Adverse Reaction, Unknown, RESTLESSNESS, 02/11/17) promethazine (Verified Adverse Reaction, Unknown, RESTLESSNESS, 02/11/17) Ht/Wt/BMI Height: 5 ' 4.50 " Weight: 97.100 kg BMI: 36.2 kg/m2 Vital Signs Date Time Temp Pulse Resp B/P Pulse Ox O2 Delivery O2 Flow Rate FiO2 02/13/17 08:23 97.8 65 14 153/91 100 Room Air Medications Inpatient Medications Current Medications Medications (Trade) Dose Ordered Sig/Samy Start Time Stop Time Status Last Admin Dose Admin Lactated Ringer's (Lactated Ringers) 1,000 ml @ 30 mls/hr Q24H 02/13/17 07:00 Folic Acid (Folic Acid) 1 Mg Tablet, 1 TAB PO DAILY, (Reported) Gabapentin (Gabapentin) 300 Mg Capsule, 1-2 CAP PO TID, (Reported) Ondansetron HCl (Ondansetron HCl) 4 Mg Tablet, 8 MG PO Q8H, (Reported) Oxycodone HCl/Acetaminophen (Oxycodone-Acetaminophen 5-325) 5-325 Tablet, 1-2 TAB PO Q4-6H PRN for PAIN, (Reported) Prochlorperazine Maleate (Prochlorperazine Maleate) 10 Mg Tablet, 1 TAB PO Q6H, (Reported) Currently on Beta Alva: No Medical/Surgical History Anesthesia PMH: Reports: Arthritis (PER H&P), Cancer (CERVICAL), Obesity, Thyroid Disease (HYPOTHYROIDISM PER H&P), Denies: *Diabetes, Anesthesia Reactions (NO AIRWAY ISSUES), Blood Transfusion Reac, Clotting Problems, Glaucoma, Malignant Hyperthermia, Renal Disease, Sleep Apnea Smoking Status: Former smoker # of Packs per Day: 1 # of Years: 13 Use Chewing Tobacco?: No Second Hand Exposure: No Substance Use Type: does not use Alcohol Intake: none HX of Last Menstrual Period: POST MENOPAUSAL 2013 Past Surgical History Orthopedic Surgeries: Abdominal Surgeries: Genitourinary Surgeries: Yes - STENTS TO L. KIDNEY Cardiac Surgeries: Endocrine Surgeries: Reproductive Surgeries: Yes - SLEEVE PLACEMENT,MASS REMOVAL,SALPINGO OOPHORECTOMY,T&O INSERTIONS Neurological Surgeries: Ear Surgeries: Nose Surgeries: Throat Surgeries: Other Surgeries: Yes - COLONOSCOPY & EGD Anesthesia Adverse Reactions: FOUND none Family Hx of Anesthesia Advers: none Hx of Motion Sickness: No Pertinent Findings EKG Rhythm: Sinus Rhythm Physical Exam Respiratory: Bilat breath sounds equal, Lungs clear Cardiovascular: FOUND Regular rate, rhythm, FOUND No murmur Airway Assessment Mallampati Score: I TMD: 3 Fingerbreadths Neck Extension: Good Overall Assessment: No Airway Concerns ASA: 3 Plan Anesthesia Plan: TIVA Discussion Discussed risks/options/alternatives of anesthesia and questions answered. Patient consents. Nursing pain assessment noted. Attestation Statement Prior to the delivery of any anesthetic medication, I examined the patient, developed the plan, obtained the patient's consent and discussed the risk and benefits of the procedure with the patient/guardian. RADHAMES SYKES CRNA Feb 13, 2017 08:33
[2017-02-13] MEDS ORDERED: IOHEXOL 300 MG/ML 50ml INJECTION ONE (08:41)
[2017-02-13 08:45] LABS: BASOPHILS % (AUTO) 0.5 % (0-2); EOSINOPHILS # (AUTO) 0.4 T/MM3 (0-0.5); HCT - HEMATOCRIT 32.5 % (36-46); HGB - HEMOGLOBIN 9.7 GM/DL (12-16); IMMATURE GRANULOCYTE # (AUTO) 0.01 T/MM3 (0.00-0.03); IMMATURE GRANULOCYTE % (AUTO) 0.3 % (0.0-0.5); LYMPHOCYTES # (AUTO) 0.4 T/MM3 (1-4.8); LYMPHOCYTES % (AUTO) 11.9 % (23-45); MEAN CORPUSCULAR HGB 31.7 UUG (26-34); MEAN CORPUSCULAR HGB CONC(MCHC 29.8 GM/DL (31-37); MEAN CORPUSCULAR VOLUME 106.2 UM3 (80-100); MEAN PLATELET VOLUME 9.7 UM3 (9.4-12.4); MONOCYTES # (AUTO) 0.3 T/MM3 (0-0.8); NEUTROPHILS #(AUTO)-ABSOLUTE 2.6 T/MM3 (1.8-7.7); NEUTROPHILS % (AUTO) 70.3 % (33-66); RED BLOOD COUNT 3.06 M/MM3 (4.00-5.20); WBC - WHITE BLOOD COUNT 3.7 T/MM3 (4.5-11.0)
[2017-02-13 08:53] LABS: ANION GAP 11 MEQ/L (5-15); BUN/CREATININE RATIO 21 RATIO (6-26); CHLORIDE 108 MEQ/L (98-107); CO2 - CARBON DIOXIDE 25 MEQ/L (22-30); CREATININE 0.8 MG/DL (0.7-1.2); GLOMERULAR FILTRATION RATE 75; GLUCOSE 95 MG/DL (65-110); POTASSIUM 4.1 MEQ/L (3.6-5); SODIUM 144 MEQ/L (134-144)
[2017-02-13] MEDS ORDERED: FENTANYL 100mcg/2ml INJECTION ONE (09:27)
[2017-02-13] MEDS ORDERED: KETOROLAC 30mg/ml INJECTION ONE (09:27)
[2017-02-13] MEDS ORDERED: KETAMINE 500mg/10ml INJECTION ONE (09:27)
[2017-02-13] MEDS ORDERED: PROPOFOL 500mg 50 ML IV ONE (09:27)
--- NOTE | 2017-02-13 10:14 | ANESPO ---
Post-Op Note Date 02/13/17 Time: 10:14 Status Pt Participated in Evaluation: Pt participated in person Vital Signs Date Time Temp Pulse Resp B/P Pulse Ox O2 Delivery O2 Flow Rate FiO2 02/13/17 08:23 97.8 65 14 153/91 100 Room Air Respiratory Function: Airway patent, Regular respirations Cardiovascular Function: Regular pulse Telemetry Pattern: SR Mental Status: Alert/oriented Pain Level Intensity: 0 Hydration: IV infusing Complications during Recovery None apparent Follow-Up Instructions Instructions Per Surgeon RADHAMES SYKES CRNA Feb 13, 2017 10:14
[2017-02-13] MEDS: HYDROMORPHONE 2mg/ml INJECTION IV PRN ×3 (10:26→10:47)
[2017-02-13] MEDS ORDERED: ONDANSETRON 4mg/2ml INJECTION IV PRN (10:30)
--- NOTE | 2017-02-13 11:03 | NUR ---
Transfer Patient alert and oriented and without complaints. Transferred to Imaging Department per cart for CT. Velarde patent. RN remains with patient throughout CT.
[2017-02-13] MEDS ORDERED: BUPIVACAINE 0.25%/EPI 1:200,000 30ml SDV ONE (11:26)
--- NOTE | 2017-02-13 11:33 | NUR ---
Transfer Patient remains alert and oriented. Without complaints. Transfer of care to [facility].
--- NOTE | 2017-02-13 12:01 | DI ---
Indication: ITS.REASON: Verify applicator placement and R/O post-op complication PROCEDURE: CT PELVIS W/O CONTRAST: Encounter: Subsequent Comparison: CT pelvis dated February 11, 2017 Technique: Axial noncontrast CT imaging through the pelvis with coronal and sagittal two-dimensional reformats. Automated Exposure Control and Iterative Reconstruction dose reducing techniques were utilized. Findings: Exam is performed for radiation therapy treatment planning purposes. There is a tandem and ovoid device in appropriate position. No evidence of uterine perforation. Velarde catheter within a contrast-filled bladder. No evidence of extravasation. Rectal contrast was also administered. No evidence of colonic perforation. Visualized small and large bowel loops within the pelvis are grossly normal. Bone windows are unremarkable. Left-sided ureteral stent in place. Surgical clips along the left pelvic sidewall. Impression: Radiation therapy treatment device in place without evidence of immediate complication. .
--- NOTE | 2017-02-13 15:54 | GSDISC ---
General Date Date DATE: 02/13/17 TIME: 15:50 Attending Physician Abbey Stinson MD Admitting Physician Abbey Stinson MD Consulting Physician Discharge Diagnosis: (1) Cervical carcinoma Status: Chronic Procedures Tandem and ovoid insertion with exam under anesthesia. Laboratory Laboratory Laboratory Tests Test 02/13/17 08:39 White Blood Count 3.7T/MM3 Red Blood Count 3.06M/MM3 Hemoglobin 9.7GM/DL Hematocrit 32.5% Mean Corpuscular Volume 106.2UM3 Mean Corpuscular Hemoglobin 31.7UUG Mean Corpuscular Hemoglobin Concent 29.8GM/DL RDW Standard Deviation 58.4FL Platelet Count 151T/MM3 Mean Platelet Volume 9.7UM3 Immature Granulocyte % (Auto) 0.3% Neutrophils (%) (Auto) 70.3% Lymphocytes (%) (Auto) 11.9% Monocytes (%) (Auto) 7.0% Eosinophils (%) (Auto) 10.0% Basophils (%) (Auto) 0.5% Absolute Immature Granulocyte (auto 0.01T/MM3 Absolute Neutrophils (auto) 2.6T/MM3 Absolute Lymphocytes (auto) 0.4T/MM3 Absolute Monocytes (auto) 0.3T/MM3 Absolute Eosinophils (auto) 0.4T/MM3 Absolute Basophils (auto) 0.0T/MM3 Turbidity < 20 Sodium Level 144MEQ/L Potassium Level 4.1MEQ/L Chloride Level 108MEQ/L Carbon Dioxide Level 25MEQ/L Anion Gap 11MEQ/L Blood Urea Nitrogen 17.0MG/DL Creatinine 0.8MG/DL Glomerular Filtration Rate Calc 75 BUN/Creatinine Ratio 21RATIO Glucose Level 95MG/DL Calculated Osmolality 279MOSM/KG Calcium Level 9.0MG/DL Icterus Index < 2 Chemistry Specimen Hemolysis < 15 Hospital Course Patient was prepped and draped in standard fashion. Velarde catheter was placed with Hypaque in the balloon. Exam under anesthesia shows good response to treatment. 15 tandem was placed into cervical sleeve without difficulty along with small ovoids. Two vaginal packs were placed, one anteriorly for the bladder and one posteriorly for the rectum. Rectal tube was placed for CT contrast and planning purposes. Patient tolerated the procedure well and was dismissed to recovery in good condition. Home Meds Reported Medications Prochlorperazine Maleate (Prochlorperazine Maleate) 10 Mg Tablet, 1 TAB PO Q6HPRN for NAUSEA 01/09/17 Ondansetron HCl (Ondansetron HCl) 4 Mg Tablet, 8 MG PO Q8HPRN for NAUSEA 01/09/17 Gabapentin (Gabapentin) 300 Mg Capsule, 1-2 CAP PO TID, CAP 01/09/17 Folic Acid (Folic Acid) 1 Mg Tablet, 1 TAB PO DAILY 01/08/17 Oxycodone HCl/Acetaminophen (Oxycodone-Acetaminophen 5-325) 5-325 Tablet, 1-2 TAB PO Q4-6H Y for PAIN 01/08/17 Discharge Disposition Dismissed to recovery in good condition. ABBEY STINSON MD Feb 13, 2017 15:54
== END 2017-02-13 11:33 | disposition home or self-care (01) ==
LOC: SCU 08:14
PROVIDERS: ATTEND Radiology Radiation Oncology
DX: C79.82 Secondary malignant neoplasm of genital organs (principal); Z15.09 Genetic susceptibility to other malignant neoplasm; Z90.722 Acquired absence of ovaries, bilateral; Z90.79 Acquired absence of other genital organ(s); Z79.899 Other long term (current) drug therapy; Z80.3 Family history of malignant neoplasm of breast
CPT/HCPCS: 57155; 72192; 80048; 85025; J0690; J1170; J1885; J2704; J3010; J7120; Q9967; S0020

== ENCOUNTER 2017-02-27 08:16 | Day surgery (SDC) | payer BC ==
[~2017-02-27] VITALS: Ht 163.8 cm; Wt 95.0 kg
[~2017-02-27 08:16] MED LIST changes: -IOHEXOL 300 MG/ML 50ml INJECTION ONE; -LIDOCAINE 1% (10mg/ml) 2ml SDV INJ ONE
--- OUTSIDE RECORDS SUMMARY | 2017-02-27 08:22 | XMS REPORT | Continuity of Care Document ---
Author Author [facility] Organization [facility] Address Unknown Phone Unavailable Care Team Providers Care Healthcare Prof Name Role Phone Ajith Mcintosh Primary Care Physician [phone] Source Comments Some departments are not documenting in the electronic medical record. If you do not see the information that you expected, contact Release of Information in the Health Information Management department at [phone] for further assistance in locating additional records.[facility] Active Allergies and Adverse Reactions [...]
--- OUTSIDE RECORDS SUMMARY | 2017-02-27 08:22 | XMS REPORT | Continuity of Care Document ---
Author Author [facility] Organization [facility] Address Unknown Phone Unavailable Support Name Relationship Address Phone CHEKO AMIN MD Caregiver [address] [place] [address] Unavailable NAPOLEON PILLAI MD Caregiver [address] [place] [address] Unavailable ALYX DURBIN Next Of Kin [address] [place] [address] Insurance Providers Guarantor Lizz Durbin Address [address] [place] [address] Email [email or web address] Payer [facility] Policy Number [id number] Subscriber's Name Alyx Durbin Relationship 01 Spouse Group Number [id number] Advance Directives Directive Response Recorded Date/Time Dr Ordered Resuscitation Status Full Code 02/12/17 3:14pm Resuscitation Documents on File No 02/13/17 8:30am DPOA for Healthcare Only No 02/13/17 8:30am Living Will No 02/13/17 8:30am Problems Active Problems Medical Problem Onset Date Status Cervical carcinoma Unknown Chronic Medications Current Home Medications Medication Dose Units Route Directions Days Qty Instructions Start Date Folic Acid 1 Mg Tablet 1 Tab Oral Daily 01/08/17 Gabapentin 300 Mg Capsule 1-2 Cap Oral Three Times A Day 01/09/17 Ondansetron Hcl 4 Mg Tablet 8 Mg Oral Every 8 Hours Prn for Nausea 01/09/17 Oxycodone Hcl/Acetaminophen (Oxycodone-Acetaminophen 5-325) 5-325 Tablet 1-2 Tab Oral Every 4-6 Hours as needed for Pain 01/08/17 Prochlorperazine Maleate 10 Mg Tablet 1 Tab Oral Every 6 Hr Prn for Nausea 01/09/17 Social History Social History Problem Response Recorded Date/Time Onset Date Status Hx Substance Use No 02/13/2017 8:30am Not Applicable Not Applicable Hx Alcohol Use Y OCC 02/13/2017 8:30am Not Applicable Not Applicable Has the pt used tobacco in the last 12 months No 02/13/2017 8:30am Not Applicable Not Applicable Query Response Start Date Stop Date Smoking Status Former smoker Hospital Discharge Instructions No hospital discharge instructions. Plan of Care Discharge Date 02/13/17 11:33am Prescriptions See Medication Section Functional Status Query Response Date Recorded Ability to complete ADL's impeded by No change February 13, 2017 8:30am Allergies, Adverse Reactions, Alerts Allergen Type Severity Reaction Status Last Updated Promethazine Adverse Reaction Unknown RESTLESSNESS Active 02/11/17 Metoclopramide Adverse Reaction Unknown RESTLESSNESS Active 02/11/17 Immunizations Query Response on File Recorded Date/Time Hx Influenza Vaccination No 02/13/17 8:30am Hx Pneumococcal Vaccination No 02/13/17 8:30am Hx Influenza Vaccination No 02/13/17 8:30am Vital Signs Acute Vital Signs Vital Response Date/Time Temperature (Fahrenheit) 97.4 deg F (96.8 - 99.1) 02/13/2017 10:02am Temperature (Calculated Celsius) 36.83946 degrees C (36.0 - 37.3) 02/13/2017 10:02am Temperature Source Temporal 02/13/2017 10:02am Pulse Rate (adult) 62 bpm (60 - 100) 02/13/2017 11:00am Respiratory Rate 16 breaths/min (10 - 20) 02/13/2017 11:00am O2 Sat by Pulse Oximetry 92 % (90 - 100) 02/13/2017 11:00am Oxygen Delivery Method Room Air 02/13/2017 11:00am Oxygen Flow Rate 6.00 L/min 02/13/2017 10:02am Blood Pressure 128/72 mm Hg 02/13/2017 11:00am Blood Pressure Source Automatic Cuff 02/13/2017 11:00am Height (Feet) 5 feet 02/13/2017 8:22am Height (Inches) 4.50 inches 02/13/2017 8:22am Weight (Kilograms) 97.100 kg 02/13/2017 8:22am Body Mass Index (BMI) 36.2 02/13/2017 8:22am Results Laboratory Results Test Name Result Units [...] 01/16/2017 9:52am 01/16/2017 10:17am White Blood Count 3.7 T/MM3 L 4.5-11.0 02/13/2017 8:39am 02/13/2017 8: 45am Red Blood Count 3.06 M/MM3 L 4.00-5.20 02/13/2017 8:39am 02/13/2017 8: 45am Hemoglobin 9.7 GM/DL L 12-16 02/13/2017 8:39am 02/13/2017 8:45am Hematocrit 32.5 % L 36-46 02/13/2017 8:39am 02/13/2017 8:45am Mean Corpuscular Volume 106.2 UM3 H 80-100 02/13/2017 8:39am 02/13/2017 8:45am Mean Corpuscular Hemoglobin 31.7 UUG 26-34 02/13/2017 8:39am 2016 8:45am Mean Corpuscular Hemoglobin Concent 29.8 GM/DL L 31-37 02/13/2017 8:39am 02/13/2017 8:45am RDW Standard Deviation 58.4 FL H 36.9-50.2 02/13/2017 8:39am 02/13/2017 8:45am Platelet Count 151 T/MM3 130-400 02/13/2017 8:39am 02/13/2017 8:45am Mean Platelet Volume 9.7 UM3 9.4-12.4 02/13/2017 8:39am 02/13/2017 8: 45am Neutrophils (%) (Auto) 70.3 % H 33-66 02/13/2017 8:39am 02/13/2017 8: 45am Lymphocytes (%) (Auto) 11.9 % L 23-45 02/13/2017 8:39am 02/13/2017 8: 45am Monocytes (%) (Auto) 7.0 % 0-9.0 02/13/2017 8:39am 02/13/2017 8:45am Eosinophils (%) (Auto) 10.0 % H 0-4 02/13/2017 8:39am 02/13/2017 8:45am Basophils (%) (Auto) 0.5 % 0-2 02/13/2017 8:39am 02/13/2017 8:45am Immature Granulocyte % (Auto) 0.3 % 0.0-0.5 02/13/2017 8:39am 2016 8:45am Absolute Neutrophils (auto) 2.6 T/MM3 1.8-7.7 02/13/2017 8:39am 2016 8:45am Absolute Lymphocytes (auto) 0.4 T/MM3 L 1-4.8 02/13/2017 8:39am 2016 8:45am Absolute Monocytes (auto) 0.3 T/MM3 0-0.8 02/13/2017 8:39am 02/13/2017 8:45am Absolute Eosinophils (auto) 0.4 T/MM3 0-0.5 02/13/2017 8:39am 2016 8:45am Absolute Basophils (auto) 0.0 T/MM3 0-0.2 02/13/2017 8:39am 02/13/2017 8:45am Absolute Immature Granulocyte (auto 0.01 T/MM3 0.00-0.03 02/13/2017 8: 39am 02/13/2017 8:45am Icterus Index < 2 0-7 02/13/2017 8:39am 02/13/2017 8:53am Chemistry Specimen Hemolysis < 15 0-25 02/13/2017 8:39am 02/13/2017 8 :53am 0-25: Specimen Exhibited No Hemolysis. Turbidity < 20 0-20 02/13/2017 8:39am 02/13/2017 8:53am Sodium Level 144 MEQ/L 134-144 02/13/2017 8:39am 02/13/2017 8:53am Potassium Level 4.1 MEQ/L 3.6-5 02/13/2017 8:39am 02/13/2017 8:53am Chloride Level 108 MEQ/L H 98-107 02/13/2017 8:39am 02/13/2017 8:53am Carbon Dioxide Level 25 MEQ/L 22-30 02/13/2017 8:39am 02/13/2017 8: 53am Anion Gap 11 MEQ/L 5-15 02/13/2017 8:39am 02/13/2017 8:53am Blood Urea Nitrogen 17.0 MG/DL 7-17 02/13/2017 8:39am 02/13/2017 8: 53am Creatinine 0.8 MG/DL D 0.7-1.2 02/13/2017 8:39am 02/13/2017 9:06am BUN/Creatinine Ratio 21 RATIO 6-26 02/13/2017 8:39am 02/13/2017 8:53am Glomerular Filtration Rate Calc 75 02/13/2017 8:39am 02/13/2017 8: 53am Glucose Level 95 MG/DL 65-110 02/13/2017 8:39am 02/13/2017 8:53am Calculated Osmolality 279 MOSM/KG 261-280 02/13/2017 8:39am 02/13/2017 8:53am Calcium Level 9.0 MG/DL 8.4-10.2 02/13/2017 8:39am 02/13/2017 8:53am Name: LIZZ DURBIN Unit #: [id number] : 1965 Sex: F Admit Date: Loc / Svc: SCU Discharge Date: DIAGNOSTIC IMAGING REPORT Report #: [id number] [facility] IMELDA Flores Indication: ITS.REASON: Verify applicator placement and R/O post-op complication PROCEDURE: CT PELVIS W/O CONTRAST: Encounter: Subsequent Comparison: CT pelvis dated February 11, 2017 Technique: Axial noncontrast CT imaging through [...] 01/09/17 Complete cbc w/auto diff wbc Completed 01/09/17175347"INJECTION, HEPARIN SODIUM, (HEPARIN LOCK FLUSH), PER Completed 003"INJECTION, MIDAZOLAM HYDROCHLORIDE, PER 1 MG" Completed 01/09/17 PROPOFOL INJ 500 MG/50ML Completed 01/09/17644221"INJECTION, FENTANYL CITRATE, 0.1 MG" Completed 01/09/17612175"RINGERS LACTATE INFUSION, UP TO 1000 CC" Completed 01/09/17972559"LOW OSMOLAR CONTRAST MATERIAL, 300-399 MG/ML IODINE C Completed Insert uteri tandem/ovoids Completed 01/16/[address] pelvis w/o dye Completed 01/16/17 Metabolic panel total ca Completed 01/16/17 Complete cbc w/auto diff wbc Completed 01/16/17638438"INJECTION, CEFAZOLIN SODIUM, 500 MG" Completed 01/16/17936531"INJECTION, DEXAMETHASONE SODIUM PHOSPHATE, 1MG" Completed 01/16/17984011"INJECTION, HYDROMORPHONE, UP TO 4 MG" Completed 01/16/17368718"INJECTION, HYDROMORPHONE, UP TO 4 MG" Completed 01/16/17 PROPOFOL INJ 500 MG/50ML Completed 01/16/17075858"INJECTION, FENTANYL CITRATE, 0.1 MG" Completed 01/16/17958583"RINGERS LACTATE INFUSION, UP TO 1000 CC" Completed 01/16/17187254"LOW OSMOLAR CONTRAST MATERIAL, 300-399 MG/ML IODINE C Completed 03/23/ 17 720948"LOW OSMOLAR CONTRAST MATERIAL, 300-399 MG/ML IODINE C Completed Insert uteri tandem/ovoids Completed 01/30/[address] pelvis w/o dye Completed 01/30/17 Metabolic panel total ca Completed 01/30/17 Complete cbc w/auto diff wbc Completed 01/30/17 790360"INJECTION, CEFAZOLIN SODIUM, 500 MG" Completed 01/30/17172475"INJECTION, HYDROMORPHONE, UP TO 4 MG" Completed 01/30/17 PROPOFOL INJ 500 MG/50ML Completed 01/30/17867017"INJECTION, FENTANYL CITRATE, 0.1 MG" Completed 01/30/17812575"RINGERS LACTATE INFUSION, UP TO 1000 CC" Completed 01/30/17428950"LOW OSMOLAR CONTRAST MATERIAL, 300-399 MG/ML IODINE C Completed 003"LOW OSMOLAR CONTRAST MATERIAL, 300-399 MG/ML IODINE C Completed Insert uteri tandem/ovoids Completed 02/11/[address] pelvis w/o dye Completed 02/11/17 Metabolic panel total ca Completed 02/11/17 Complete cbc w/auto diff wbc Completed 02/11/17 259304"INJECTION, CEFAZOLIN SODIUM, 500 MG" Completed 02/11/17181850"INJECTION, HYDROMORPHONE, UP TO 4 MG" Completed 02/11/17507028"INJECTION, HYDROMORPHONE, UP TO 4 MG" Completed 02/11/17754230"INJECTION, HYDROMORPHONE, UP TO 4 MG" Completed 02/11/17662767"INJECTION, KETOROLAC TROMETHAMINE, PER 15 MG" Completed 02/11/17424240"INJECTION, MIDAZOLAM HYDROCHLORIDE, PER 1 MG" Completed 02/11/17855759"INJECTION, ONDANSETRON HYDROCHLORIDE, PER 1 MG" Completed 02/11/17 PROPOFOL INJ 500 MG/50ML Completed 02/11/17433600"INJECTION, FENTANYL CITRATE, 0.1 MG" Completed 02/11/17184497"RINGERS LACTATE INFUSION, UP TO 1000 CC" Completed 02/11/17087186"LOW OSMOLAR CONTRAST MATERIAL, 300-399 MG/ML IODINE C Completed 003"LOW OSMOLAR CONTRAST MATERIAL, 300-399 MG/ML IODINE C Completed Brachytherapy Completed 02/13/17 NAPOLEON PILLAI MD Encounters Encounter Location Arrival/Admit Date [facility]/13[facility] 11 :33[facility] 10[facility] 02/11/17 2 :31pm NAPOLEON PILLAI MD Departed [facility] 01/30/17 8:31am 01/30/17 11 :25am NAPOLEON PILLAI MD Departed [facility] 01/16/17 9:23am 01/16/17 12 :31pm NAPOLEON PILLAI MD Departed [facility] 01/09/17 11:20am 01/09/17 2 :25pm NAPOLEON PILLAI MD
[2017-02-27 08:33] VITALS: BP 138/91; PULSE 83; RESP 14; TEMP 97.5; O2SAT 98; Ht 163.8 cm; Wt 95.0 kg
[2017-02-27] MEDS ORDERED: IOHEXOL 300 MG/ML 50ml INJECTION ONE ×2 (08:41→09:35)
[2017-02-27 08:53] LABS: BASOPHILS % (AUTO) 0.7 % (0-2); EOSINOPHILS # (AUTO) 0.4 T/MM3 (0-0.5); EOSINOPHILS % (AUTO) 8.2 % (0-4); HCT - HEMATOCRIT 35.6 % (36-46); HGB - HEMOGLOBIN 10.8 GM/DL (12-16); LYMPHOCYTES # (AUTO) 0.5 T/MM3 (1-4.8); LYMPHOCYTES % (AUTO) 10.9 % (23-45); MEAN CORPUSCULAR HGB 31.1 UUG (26-34); MEAN CORPUSCULAR HGB CONC(MCHC 30.3 GM/DL (31-37); MEAN CORPUSCULAR VOLUME 102.6 UM3 (80-100); MEAN PLATELET VOLUME 9.9 UM3 (9.4-12.4); MONOCYTES # (AUTO) 0.3 T/MM3 (0-0.8); NEUTROPHILS #(AUTO)-ABSOLUTE 3.2 T/MM3 (1.8-7.7); NEUTROPHILS % (AUTO) 73.2 % (33-66); RED BLOOD COUNT 3.47 M/MM3 (4.00-5.20); WBC - WHITE BLOOD COUNT 4.4 T/MM3 (4.5-11.0)
[2017-02-27 09:03] LABS: ANION GAP 11 MEQ/L (5-15); BUN/CREATININE RATIO 27 RATIO (6-26); CALCIUM 9.7 MG/DL (8.4-10.2); CHLORIDE 105 MEQ/L (98-107); CO2 - CARBON DIOXIDE 25 MEQ/L (22-30); CREATININE 1.1 MG/DL (0.7-1.2); GLOMERULAR FILTRATION RATE 52; GLUCOSE 101 MG/DL (65-110); POTASSIUM 4.6 MEQ/L (3.6-5); SODIUM 141 MEQ/L (134-144)
--- NOTE | 2017-02-27 09:10 | ANESPREOP ---
Anesthesia Record Date and Time DATE: 02/27/17 TIME: 09:09 Proposed Surgical Procedure T&O #5 Allergies: Coded Allergies: metoclopramide (Verified Adverse Reaction, Unknown, RESTLESSNESS, 02/27/17) promethazine (Verified Adverse Reaction, Unknown, RESTLESSNESS, 02/27/17) Ht/Wt/BMI Height: 5 ' 4.50 " Weight: 95.000 kg BMI: 35.4 kg/m2 Vital Signs Date Time Temp Pulse Resp B/P Pulse Ox O2 Delivery O2 Flow Rate FiO2 02/27/17 08:33 97.5 83 14 138/91 98 Room Air Medications Inpatient Medications Current Medications Medications (Trade) Dose Ordered Sig/Samy Start Time Stop Time Status Last Admin Dose Admin Lactated Ringer's (Lactated Ringers) 1,000 ml @ 30 mls/hr Q24H 02/27/17 07:00 02/27/17 09:01 30 MLS/HR Folic Acid (Folic Acid) 1 Mg Tablet, 1 TAB PO DAILY, (Reported) Last Taken: on 02/26/17 1000 Gabapentin (Gabapentin) 300 Mg Capsule, 1-2 CAP PO TID, (Reported) Last Taken: on 02/26/17 2300 Ondansetron HCl (Ondansetron HCl) 4 Mg Tablet, 8 MG PO Q8HPRN, (Reported) Last Taken: on 02/27/17 0730 Oxycodone HCl/Acetaminophen (Oxycodone- Acetaminophen 5-325) 5-325 Tablet, 1-2 TAB PO Q4-6H PRN for PAIN, (Reported) Last Taken: on 02/26/17 2300 Prochlorperazine Maleate (Prochlorperazine Maleate) 10 Mg Tablet, 1 TAB PO Q6HPRN, (Reported) Last Taken: on Unknown Date & Time Currently on Beta Alva: No Medical/Surgical History Anesthesia PMH: Reports: Anesthesia Reactions (NO AIRWAY ISSUES), Arthritis ( feet, ankles, right hip), Cancer (CERVICAL), Obesity, Denies: *Diabetes, Blood Transfusion Reac, Clotting Problems, Glaucoma, Malignant Hyperthermia, Renal Disease, Sleep Apnea, Thyroid Disease (HYPOTHYROIDISM in past-not on meds now) Smoking Status: Current every day smoker # of Packs per Day: 1 # of Years: 13 Use Chewing Tobacco?: No Second Hand Exposure: No Substance Use Type: does not use Alcohol Intake: none HX of Last Menstrual Period: 2014 Past Surgical History Orthopedic Surgeries: Abdominal Surgeries: Genitourinary Surgeries: Yes - STENTS TO L. KIDNEY Cardiac Surgeries: Endocrine Surgeries: Reproductive Surgeries: Yes - SLEEVE PLACEMENT,MASS REMOVAL,SALPINGO OOPHORECTOMY,T&O INSERTIONS Neurological Surgeries: Ear Surgeries: Nose Surgeries: Throat Surgeries: Other Surgeries: Yes - COLONOSCOPY & EGD; Port-a-Cath Insertion Anesthesia Adverse Reactions: FOUND none Family Hx of Anesthesia Advers: none Hx of Motion Sickness: No Pertinent Findings Laboratory Tests 02/27/17 08:42 EKG Rhythm: Sinus Rhythm Physical Exam Respiratory: Lungs clear Cardiovascular: FOUND Regular rate, rhythm Airway Assessment Mallampati Score: II TMD: 3 Fingerbreadths Neck Extension: Good Overall Assessment: No Airway Concerns ASA: 2 Plan Anesthesia Plan: TIVA Discussion Discussed risks/options/alternatives of anesthesia and questions answered. Patient consents. Nursing pain assessment noted. Attestation Statement Prior to the delivery of any anesthetic medication, I examined the patient, developed the plan, obtained the patient's consent and discussed the risk and benefits of the procedure with the patient/guardian. BÁRBARA STYLES CRNA February 27, 2017 09:10
[2017-02-27] MEDS ORDERED: MIDAZOLAM 2mg/2ml INJECTION ONE (09:29)
[2017-02-27] MEDS ORDERED: FENTANYL 100mcg/2ml INJECTION ONE (09:32)
[2017-02-27] MEDS ORDERED: ONDANSETRON 4mg/2ml INJECTION ONE (09:38)
[2017-02-27] MEDS ORDERED: KETOROLAC 30mg/ml INJECTION ONE (09:38)
[2017-02-27 10:13] VITALS: BP 103/65; PULSE 85; RESP 12; TEMP 98.8; O2SAT 95
[2017-02-27] MEDS: HYDROMORPHONE 2mg/ml INJECTION IV PRN ×4 (10:22→10:58)
[2017-02-27 10:27] VITALS: BP 102/62; PULSE 76; RESP 12; O2SAT 94
[2017-02-27] MEDS ORDERED: ONDANSETRON 4mg/2ml INJECTION IV PRN (10:30)
[2017-02-27 10:38] VITALS: BP 101/66; PULSE 73; RESP 12; O2SAT 95
[2017-02-27 10:55] VITALS: BP 111/64; PULSE 75; RESP 16; O2SAT 98
[2017-02-27 11:05] VITALS: BP 109/64; PULSE 68; RESP 16; O2SAT 98
--- NOTE | 2017-02-27 11:07 | NUR ---
TRANSFER PATIENT ALERT AND ORIENTED WITHOUT COMPLAINTS. TRANSFERRED TO IMAGING DEPARTMENT PER CART FOR CT. MEHTA PATENT. RN REMAINS WITH PATIENT DURING CT.
--- NOTE | 2017-02-27 11:26 | NUR ---
TRANSFER PATIENT REMAINS ALERT AND ORIENTED. WITHOUT COMPLAINTS. TRANSFER OF CARE TO [facility]. REPORT GIVEN TO FRANCHESKA, [employer] BUILDER WITH [facility]. TO [facility] PER CART ACCOMPANIED BY JO. MEHTA REMAINS PATENT.
--- NOTE | 2017-02-27 11:33 | ANESPO ---
Post-Op Note Date 02/27/17 Time: 10:39 Status Pt Participated in Evaluation: Pt participated in person Vital Signs Date Time Temp Pulse Resp B/P Pulse Ox O2 Delivery O2 Flow Rate FiO2 02/27/17 11:05 68 16 109/64 98 Room Air 02/27/17 10:13 98.8 Respiratory Function: Airway patent Cardiovascular Function: Regular pulse Mental Status: Alert/oriented Pain Level Intensity: 2 Unable to Assess Pain Due To: Medicated/Sleeping Hydration: Taking po fluids Complications during Recovery None apparent Follow-Up Instructions Instructions Per Surgeon BÁRBARA STYLES CRNA February 27, 2017 11:33
--- NOTE | 2017-02-27 11:43 | DI ---
Indication: ITS.REASON: VERIFY APPLICATOR PLACEMENT AND R/O POSTOP COMPLICATION PROCEDURE: CT PELVIS W/O CONTRAST: Encounter: Subsequent Comparison: CT pelvis dated February 13, 2017 Technique: Axial noncontrast CT imaging through the pelvis with coronal and sagittal two-dimensional reformats. Automated Exposure Control and Iterative Reconstruction dose reducing techniques were utilized. Findings: Exam is performed for radiation therapy treatment planning purposes. There is a tandem and ovoid device in appropriate position. No evidence of uterine perforation. Velarde catheter within a contrast-filled bladder. No evidence of extravasation. Rectal contrast was also administered. No evidence of colonic perforation. Visualized small and large bowel loops within the pelvis are grossly normal. Bone windows are unremarkable. Left-sided ureteral stent in place. Surgical clips along the left pelvic sidewall. Impression: Radiation therapy treatment device in place without evidence of immediate complication. .
--- NOTE | 2017-02-27 16:24 | GSDISC ---
General Date Date DATE: 02/27/17 TIME: 16:18 Attending Physician Abbey Stinson MD Admitting Physician Abbey Stinson MD Consulting Physician Discharge Diagnosis: (1) Cervical carcinoma Status: Chronic Laboratory Laboratory Laboratory Tests Test 02/27/17 08:42 White Blood Count 4.4T/MM3 Red Blood Count 3.47M/MM3 Hemoglobin 10.8GM/DL Hematocrit 35.6% Mean Corpuscular Volume 102.6UM3 Mean Corpuscular Hemoglobin 31.1UUG Mean Corpuscular Hemoglobin Concent 30.3GM/DL RDW Standard Deviation 58.7FL Platelet Count 151T/MM3 Mean Platelet Volume 9.9UM3 Immature Granulocyte % (Auto) 0.0% Neutrophils (%) (Auto) 73.2% Lymphocytes (%) (Auto) 10.9% Monocytes (%) (Auto) 7.0% Eosinophils (%) (Auto) 8.2% Basophils (%) (Auto) 0.7% Absolute Immature Granulocyte (auto 0.00T/MM3 Absolute Neutrophils (auto) 3.2T/MM3 Absolute Lymphocytes (auto) 0.5T/MM3 Absolute Monocytes (auto) 0.3T/MM3 Absolute Eosinophils (auto) 0.4T/MM3 Absolute Basophils (auto) 0.0T/MM3 Turbidity < 20 Sodium Level 141MEQ/L Potassium Level 4.6MEQ/L Chloride Level 105MEQ/L Carbon Dioxide Level 25MEQ/L Anion Gap 11MEQ/L Blood Urea Nitrogen 30.0MG/DL Creatinine 1.1MG/DL Glomerular Filtration Rate Calc 52 BUN/Creatinine Ratio 27RATIO Glucose Level 101MG/DL Calculated Osmolality 277MOSM/KG Calcium Level 9.7MG/DL Icterus Index < 2 Chemistry Specimen Hemolysis < 15 Hospital Course Patient was prepped and draped in standard fashion. Velarde was placed with Hypaque in balloon. Exam under anesthesia showed excellent response with no signs of recurrence. No induration of the parametria and negative ascites. 15 degree tandem and small ovoids placed without complication. Separate bladder and rectal packing used to decrease dose to the region. Patient tolerated procedure well and was dismissed to recovery in good condition. Home Meds Reported Medications Prochlorperazine Maleate (Prochlorperazine Maleate) 10 Mg Tablet, 1 TAB PO Q6HPRN for NAUSEA 01/09/17 Ondansetron HCl (Ondansetron HCl) 4 Mg Tablet, 8 MG PO Q8HPRN for NAUSEA 01/09/17 Gabapentin (Gabapentin) 300 Mg Capsule, 1-2 CAP PO TID, CAP 01/09/17 Folic Acid (Folic Acid) 1 Mg Tablet, 1 TAB PO DAILY 01/08/17 Oxycodone HCl/Acetaminophen (Oxycodone-Acetaminophen 5-325) 5-325 Tablet, 1-2 TAB PO Q4-6H Y for PAIN 01/08/17 Discharge Disposition Dismissed to recovery in good condition. ABBEY STINSON MD February 27, 2017 16:23
== END 2017-02-27 11:26 | disposition home or self-care (01) ==
LOC: SCU 08:16
PROVIDERS: ATTEND Radiology Radiation Oncology
DX: C79.82 Secondary malignant neoplasm of genital organs (principal); Z90.722 Acquired absence of ovaries, bilateral; Z90.79 Acquired absence of other genital organ(s); Z15.09 Genetic susceptibility to other malignant neoplasm; Z87.891 Personal history of nicotine dependence; Z79.899 Other long term (current) drug therapy; Z80.3 Family history of malignant neoplasm of breast
CPT/HCPCS: 57155; 72192; 80048; 85025; J0690; J1170; J1885; J2250; J2405; J3010; J7120; Q9967